=== PATIENT | male | born 1980 | race Caucasian/White ===

== ENCOUNTER 2016-05-13 17:09 | Inpatient (IN) | payer MEDICAID, OTHER ==
[2016-05-13] MEDS ORDERED: SODIUM CHLORIDE 0.9% 1,000 ML IV STA (17:13)
[2016-05-13 17:31] LABS: Basophils # (A) 0.1 k/uL (0-0.2); Basophils % (A) 0 %; CHCM 31.1; Eosinophils # (A) 0.2 k/uL (0-0.7); Eosinophils % (A) 1 %; HCT 44.6 % (39.0-53.0); HDW 2.15; HGB 14.4 gm/dL (13.0-17.5); Luc # (Auto) 0.25; Luc % (Auto) 1; Lymphocytes # (A) 3.4 k/uL (1.0-4.8); Lymphocytes % (A) 19 %; MCH 30.3 pg (25.0-35.0); MCHC 32.4 g/dL (31.0-37.0); MCV 93.6 fL (80.0-100.0); Mean Platelet Volume 7.6; Monocytes # (A) 0.7 k/uL (0-1.0); Monocytes % (A) 4 %; Neutrophils # (A) 13.3 k/uL (1.3-7.7); Neutrophils % (A) 75 %; RBC 4.76 m/uL (4.30-5.90); RDW 13.3 % (11.5-15.5); WBC 17.8 k/uL (3.8-10.6); WBC (Perox) 17.79
[2016-05-13 17:37] LABS: ALT 31 U/L (21-72); AST 51 U/L (17-59); Acetaminophen <10.0 ug/mL; Alcohol <10 mg/dL; Alkaline Phosphatase 105 U/L (38-126); Anion Gap 26 mmol/L; Blood Urea Nitrogen 10 mg/dL (9-20); Calcium 9.2 mg/dL (8.4-10.2); Carbon Dioxide 13 mmol/L (22-30); Chloride 100 mmol/L (98-107); Glucose 254 mg/dL (74-99); Non-African American GFR(MDRD) >60 (>60 ml/min/1.73 sqM); Potassium 4.4 mmol/L (3.5-5.1); Salicylate <1.0 mg/dL; Sodium 139 mmol/L (137-145); Total Bilirubin 0.6 mg/dL (0.2-1.3); Total Protein 7.4 g/dL (6.3-8.2)
--- NOTE | 2016-05-13 18:57 | ED ---
Overdose HPI - General Chief Complaint: Overdose Stated Complaint: OVERDOSE Time Seen by Provider: 05/13/16 17:13 Source: EMS Mode of arrival: EMS Limitations: altered mental status - History of Present Illness Initial Comments: 5 years old gentleman brought in by EMS with a were informed about him being on the street by someone , EMS crew found that that he had didn't some mom here and recently they supported dye him with the by bagging him and then he woke up on his arrival he was breathing on his own me he would respond to prescription medicines point to verbal command we bagged him for a few minutes and then he sat up and now had a chat with us he said he did do urine as well as clonazepam. Then he said he has been very depressed and been thinking about harming himself him a he stated that he has not been taking his medications he stated that his tetanus status is up-to-date - Related Data Home Medications Medication Instructions Recorded Confirmed ARIPiprazole [Abilify] 30 mg PO DAILY 05/13/16 05/13/16 Cyclobenzaprine [Flexeril] 10 mg PO TID PRN 05/13/16 05/13/16 Mirtazapine [Remeron] 45 mg PO HS 05/13/16 05/13/16 OXcarbazepine [Trileptal] 150 mg PO BID 05/13/16 05/13/16 cloNIDine HCL [Catapres] 0.1 mg PO BID 05/13/16 05/13/16 lamoTRIgine [LaMICtal] 100 mg PO BID 05/13/16 05/13/16 Allergies Allergy/AdvReac Type Severity Reaction Status Date / Time morphine Allergy Itching Verified 05/13/16 18:10 Review of Systems ROS Statement: Those systems with pertinent positive or pertinent negative responses have been documented in the HPI. ROS Other: All systems not noted in ROS Statement are negative. Past Medical History Past Medical History: Asthma Additional Past Medical History / Comment(s): Herniated disc in the C-spine and lumbar spine, seasonal ALLERGIES History of Any Multi-Drug Resistant Organisms: MRSA Date of last positivie culture/infection: 2008 MDRO Source:: Per Pt; bilat hips from boils 2008 Past Surgical History: Orthopedic Surgery Additional Past Surgical History / Comment(s): R shoulder surg 2005 due to a work-related injury, bilat wrist surg 09/13/[address] Toribio. Past Anesthesia/Blood Transfusion Reactions: No Reported Reaction Past Psychological History: ADD/ADHD, Anxiety, Bipolar, Depression, Schizoaffective Disorder Additional Psychological History / Comment(s): Anti social personality disorder Smoking Status: Current every day smoker Past Alcohol Use History: None Reported Additional Past Alcohol Use History / Comment(s): Patient is a smoker of 2 and half packs per day. He recently cut back to 68 cigarettes per day and has not had anything since his incarceration on September 09. He has been binge drinking since he found his girlfriend with 5-6 beers per day. He denies history of alcoholism. He has history of heroin and cocaine use by snorting. He denies any IV drug use. 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 Past Drug Use History: Cocaine, Heroin, IV Drug Use, Prescription Drug Abuse - Past Family History Father Family Medical History: No Reported History Additional Family Medical History / Comment(s): Father is alove at age 65 with history of HTN, bilpolar. Mother Family Medical History: No Reported History, Diabetes Mellitus, Hypertension Additional Family Medical History / Comment(s): There is 52 years old with history of hypertension and diabetes. Patient has 2 sisters with bipolar. No brothers. General Exam - General Exam Comments Initial Comments: General: The patient is awake and alert, in no distress, and does not appear acutely ill. It anxious Skin: Skin is warm and dry and no rashes or lesions are noted. Has some small abrasions on his hands Eye: Pupils are equal, round and reactive to light, extra-ocular movements are intact; there is normal conjunctiva bilaterally. Ears, nose, mouth and throat: There are moist mucous membranes and no oral lesions. Neck: The neck is supple, there is no tenderness Cardiovascular: There is a regular rate and rhythm. No murmur, rub or gallop is appreciated. Noticed tachycardia Respiratory: To auscultation bilateral, no wheezing no rhonchi no distress respiratory sommers noticed Gastrointestinal: Soft, non-distended, non-tender abdomen without masses or organomegaly noted. There is no rebound or guarding present. Bowel sounds are unremarkable. Back: There is no tenderness to palpation in the midline. There is no obvious deformity. Musculoskeletal: Normal ROM, no tenderness, There is no pedal edema. There is no calf tenderness or swelling. No cords were appreciated. Neurological: CN II-XII intact, Cranial nerves III through XII are intact. There are no obvious motor or sensory deficits. Coordination appears grossly intact. Speech is normal. Psychiatric: Cooperative, breast admits to suicidal ideation time to time he didn't share any plan with me Limitations: altered mental status Course Vital Signs 05/13/16 05/13/16 05/13/16 17:25 18:17 19:12 Temperature 98.0 F 96.9 F L Pulse Rate 137 H 98 Respiratory 12 18 Rate Blood Pressure 135/63 126/78 O2 Sat by Pulse 93 L 94 L 100 Oximetry 05/13/16 05/13/16 20:07 21:14 Temperature Pulse Rate 88 84 Respiratory 16 16 Rate Blood Pressure 139/90 123/62 O2 Sat by Pulse 98 98 Oximetry EKG showed sinus tachycardia ventricular rate is 146 ME interval is 1:30 QRS duration is 86 QT/QTc is 288/448 vomiting review of this EKG did not reveal any ST elevation or ST depression Medical Decision Making - Lab Data Result diagrams: 05/13/16 17:10 05/13/16 17:10 Lab Results 05/13/16 05/13/16 05/13/16 Range/Units 17:10 17:10 17:10 WBC 17.8 H (3.8-10.6) k/uL RBC 4.76 (4.30-5.90) m/uL Hgb 14.4 (13.0-17.5) gm/dL Hct 44.6 (39.0-53.0) % MCV 93.6 (80.0-100.0) fL MCH 30.3 (25.0-35.0) pg MCHC 32.4 (31.0-37.0) g/dL RDW 13.3 (11.5-15.5) % Plt Count 253 (150-450) k/uL Neutrophils % 75 % Lymphocytes % 19 % Monocytes % 4 % Eosinophils % 1 % Basophils % 0 % Neutrophils # 13.3 H (1.3-7.7) k/uL Lymphocytes # 3.4 (1.0-4.8) k/uL Monocytes # 0.7 (0-1.0) k/uL Eosinophils # 0.2 (0-0.7) k/uL Basophils # 0.1 (0-0.2) k/uL VBG pH (7.31-7.41) VBG pCO2 (37-51) mmHg VBG HCO3 (24-28) mmol/L Sodium 139 (137-145) mmol/L Potassium 4.4 (3.5-5.1) mmol/L Chloride 100 (98-107) mmol/L Carbon Dioxide 13 L (22-30) mmol/L Anion Gap 26 mmol/L BUN 10 (9-20) mg/dL Creatinine 1.13 (0.66-1.25) mg/dL Est GFR (MDRD) Af Amer >60 (>60 ml/min/1.73 sqM) Est GFR (MDRD) Non-Af >60 (>60 ml/min/1.73 sqM) Glucose 254 H (74-99) mg/dL Calcium 9.2 (8.4-10.2) mg/dL Total Bilirubin 0.6 (0.2-1.3) mg/dL AST 51 (17-59) U/L ALT 31 (21-72) U/L Alkaline Phosphatase 105 (38-126) U/L Troponin I <0.012 (0.000-0.034) ng/mL Total Protein 7.4 (6.3-8.2) g/dL Albumin 4.6 (3.5-5.0) g/dL Salicylates <1.0 mg/dL Urine Opiates Screen (NotDetected) Ur Oxycodone Screen (NotDetected) Urine Methadone Screen (NotDetected) Ur Propoxyphene Screen (NotDetected) Acetaminophen <10.0 ug/mL Ur Barbiturates Screen (NotDetected) U Tricyclic Antidepress (NotDetected) Ur Phencyclidine Scrn (NotDetected) Ur Amphetamines Screen (NotDetected) U Methamphetamines Scrn (NotDetected) U Benzodiazepines Scrn (NotDetected) Urine Cocaine Screen (NotDetected) U Marijuana (THC) Screen (NotDetected) Serum Alcohol <10 mg/dL 05/13/16 05/13/16 Range/Units 19:06 20:25 WBC (3.8-10.6) k/uL RBC (4.30-5.90) m/uL Hgb (13.0-17.5) gm/dL Hct (39.0-53.0) % MCV (80.0-100.0) fL MCH (25.0-35.0) pg MCHC (31.0-37.0) g/dL RDW (11.5-15.5) % Plt Count (150-450) k/uL Neutrophils % % Lymphocytes % % Monocytes % % Eosinophils % % Basophils % % Neutrophils # (1.3-7.7) k/uL Lymphocytes # (1.0-4.8) k/uL Monocytes # (0-1.0) k/uL Eosinophils # (0-0.7) k/uL Basophils # (0-0.2) k/uL VBG pH 7.36 (7.31-7.41) VBG pCO2 42 (37-51) mmHg VBG HCO3 23 L (24-28) mmol/L Sodium (137-145) mmol/L Potassium (3.5-5.1) mmol/L Chloride (98-107) mmol/L Carbon Dioxide (22-30) mmol/L Anion Gap mmol/L BUN (9-20) mg/dL Creatinine (0.66-1.25) mg/dL Est GFR (MDRD) Af Amer (>60 ml/min/1.73 sqM) Est GFR (MDRD) Non-Af (>60 ml/min/1.73 sqM) Glucose (74-99) mg/dL Calcium (8.4-10.2) mg/dL Total Bilirubin (0.2-1.3) mg/dL AST (17-59) U/L ALT (21-72) U/L Alkaline Phosphatase (38-126) U/L Troponin I (0.000-0.034) ng/mL Total Protein (6.3-8.2) g/dL Albumin (3.5-5.0) g/dL Salicylates mg/dL Urine Opiates Screen Not Detected (NotDetected) Ur Oxycodone Screen Not Detected (NotDetected) Urine Methadone Screen Not Detected (NotDetected) Ur Propoxyphene Screen Not Detected (NotDetected) Acetaminophen ug/mL Ur Barbiturates Screen Not Detected (NotDetected) U Tricyclic Antidepress Not Detected (NotDetected) Ur Phencyclidine Scrn Not Detected (NotDetected) Ur Amphetamines Screen Not Detected (NotDetected) U Methamphetamines Scrn Not Detected (NotDetected) U Benzodiazepines Scrn Not Detected (NotDetected) Urine Cocaine Screen Detected H (NotDetected) U Marijuana (THC) Screen Detected H (NotDetected) Serum Alcohol mg/dL Critical Care Time Total Critical Care Time: 60 Critical Care Time: Patient came in the had the quite a bit of respiratory distress and the respiratory rate was quite down he needed bagging EMS and got gave him some Narcan and we bagged him in the ER then he woke up that improved his respiratory status his labs are reviewed white count is 17.8 that with some left shift also noticed that his CO2 is slight pain that a flex metabolic acidosis and sugar was high though he denies any history of diabetes urine drug screen showed marijuana as well as cocaine patient required him fluid resuscitation and after fluid resuscitation for almost 2-3 L his heart rate is normal when he came in his heart rate was quite high that time as well as 150 at this 0.2153 his heart rate is down to 84 and we repeated is a venous blood gases and his bicarb is 23 comparing to 13 when he came and he has been medically cleared to be evaluated by psych department Disposition Clinical Impression: Drug overdose, Metabolic acidosis, Suicidal ideation, Hyperglycemia, Polysubstance abuse Disposition: ADMITTED IP TO THIS [facility] Condition: Fair Referrals: None,Stated [Primary Care Provider] - 1-2 days
[2016-05-13] MEDS ORDERED: SODIUM CHLORIDE 0.9% 2,000 ML IV ONE (18:58)
[2016-05-13 20:10] VITALS: RESP 16
[2016-05-13 20:43] LABS: VBG PH 7.36 (7.31-7.41)
[2016-05-14] MEDS ORDERED: ZIPRASIDONE 20 MG VIAL IM PRN (02:56)
[2016-05-14] MEDS ORDERED: MAGNESIUM HYDROXIDE 2,400 MG/10 ML CUP PO PRN (02:56)
[2016-05-14] MEDS ORDERED: MAG HYDROX/AL HYDROX/SIMETH 30 ML CUP PO PRN (02:56)
[2016-05-14] MEDS ORDERED: LORazepam 1 MG TAB PO PRN (03:01)
[2016-05-14] MEDS: ACETAMINOPHEN TAB 325 MG TAB PO PRN ×2 (06:42→18:43)
[2016-05-14] MEDS: NICOTINE 21MG/24HR PATCH TRANSDERM SCH (09:50)
[2016-05-14] MEDS: OXcarbazepine 300 MG TAB PO SCH ×2 (09:51→21:06)
[2016-05-14 10:25] LABS: Basophils % (A) 0 %; CH 29.5; CHCM 32.7; Eosinophils # (A) 0.1 k/uL (0-0.7); Eosinophils % (A) 2 %; HCT 37.5 % (39.0-53.0); HDW 2.24; HGB 12.4 gm/dL (13.0-17.5); Luc # (Auto) 0.09; Luc % (Auto) 1; Lymphocytes # (A) 1.5 k/uL (1.0-4.8); Lymphocytes % (A) 20 %; MCHC 33.2 g/dL (31.0-37.0); Mean Platelet Volume 7.3; Monocytes # (A) 0.4 k/uL (0-1.0); Monocytes % (A) 6 %; Neutrophils # (A) 5.1 k/uL (1.3-7.7); Neutrophils % (A) 71 %; RBC 4.14 m/uL (4.30-5.90); RDW 13.7 % (11.5-15.5); WBC 7.2 k/uL (3.8-10.6); WBC (Perox) 7.92
[2016-05-14 10:36] LABS: MCV 90.6 fL (80.0-100.0)
[2016-05-14 10:51] LABS: ALT 29 U/L (21-72); AST 31 U/L (17-59); Alkaline Phosphatase 79 U/L (38-126); Anion Gap 11 mmol/L; Blood Urea Nitrogen 9 mg/dL (9-20); Calcium 8.7 mg/dL (8.4-10.2); Carbon Dioxide 23 mmol/L (22-30); Chloride 107 mmol/L (98-107); Glucose 193 mg/dL (74-99); Non-African American GFR(MDRD) >60 (>60 ml/min/1.73 sqM); Potassium 4.1 mmol/L (3.5-5.1); Sodium 141 mmol/L (137-145); Total Bilirubin 0.4 mg/dL (0.2-1.3); Total Protein 5.7 g/dL (6.3-8.2)
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
[2016-05-14] MEDS: HYDROcodone/APAP 5-325MG 1 EACH TAB PO PRN ×2 (13:41→21:35)
[2016-05-14] MEDS: GABAPENTIN 300 MG CAP PO SCH ×3 (13:44→21:06)
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
[2016-05-14 18:38] LABS: Hemoglobin A1C 6.1 % (4.2-6.1)
[2016-05-14] MEDS ORDERED: MIRTAZAPINE 15 MG TAB PO SCH (21:00)
[2016-05-15 06:41] VITALS: BP 155/88; PULSE 77; TEMP 98.2
[2016-05-15] MEDS: NICOTINE 21MG/24HR PATCH TRANSDERM SCH (08:31)
[2016-05-15] MEDS: OXcarbazepine 300 MG TAB PO SCH (08:31)
[2016-05-15] MEDS: GABAPENTIN 300 MG CAP PO SCH (08:32)
[2016-05-15] MEDS: HYDROcodone/APAP 5-325MG 1 EACH TAB PO PRN (08:32)
[2016-05-15] MEDS ORDERED: HYDROcodone/APAP 10-325MG 1 EACH TAB PO ONE (09:28)
[2016-05-15] MEDS ORDERED: ARIPiprazole 15 MG TAB PO SCH (19:00)
--- NOTE | 2016-05-16 09:30 | DS ---
DATE OF ADMISSION: 05/14/2016 DATE OF DISCHARGE: 05/15/2016 CONSULT PHYSICIAN: Josue. CONSULTING PROVIDER: Catherine Duenas. CONSULT REASON: For medical management, especially patient has been complaining of chronic pain and he has abnormal labs. His blood glucose at the admission was 254. Do you want consulting provider notified? Yes. DISCHARGE DIAGNOSES: 1. Cocaine use disorder, severe. 2. Cannabis use disorder, severe. 3. Cocaine abuse with cocaine induced mood disorder. 4. History of bipolar disorder and antisocial personality trait. BRIEF SUMMARY OF THE ADMISSION NOTES: Please refer to my initial psychiatric evaluation. Patient presented to the emergency after being on the street by someone and they called EMS. Patient took overdose of cocaine; however, he denied using cocaine despite that his urine drug screen is positive for cannabis and cocaine. When he came to the emergency room, he was in reported distress, Narcan was given and patient woke up and his respiration improved a lot. They did correct the metabolic acidosis in the emergency room and after he has been medically cleared he was transferred to the psych department. SUMMARY OF HOSPITAL COURSE: The patient was admitted to the mental health unit on voluntary basis. Since he was admitted, he denied any suicidal or homicidal ideation. He stated that he has been severely depressed because of his chronic pain and "no one is giving me pain medication because I had history of heroin and cocaine use". He stated that he is easily frustrated because no one does believe that he has severe chronic pain. He did admit that he has been noncompliant with his medication prescribed at [facility] and even he did miss his appointment in March. He did agree to be restarted back on his psychotropic medication including Abilify 30 mg daily, Remeron; however, I did cut down dose from 45 to 15 mg at bedtime and Trileptal 300 mg twice a day. As the patient was seen by the medical device assembler and he was complaining of chronic pain, she did order Neurontin 300 three times a day for pain and [place] 5 every 8 hours. When I saw the patient the next day he was very upset and angry because "I need higher dose for pain. I did not sleep last night because I'm having severe back pain". I did discuss with the patient that if he is not suicidal or homicidal he will be able to be released from here to go to pain management clinic and to follow up with [facility]. I did have a lengthy discussion with him about referral to inpatient chemical dependency; however, patient said, "I had been clean from cocaine and heroin for years. I don't know how the cocaine came in my system". His insight to his addiction is still questionable. Patient does have a family meeting scheduled at 11:00 with his mother as he has been living with his parents. MENTAL STATUS EXAMINATION: Patient is alert. He gives good eye contact, drug seeking. Speech is spontaneous and non-pressured. Thought process is linear. At times circumstantial but easy to redirect. He denied any suicidal or homicidal ideation, intent or plan. He does not feel hopeless or helpless. He stated that he just needs someone to give him enough pain medication for his chronic pain. There is no evidence of hypomania or logan. There is no evidence of psychosis. Insight and judgment are fair. PLAN: 1. Patient will be discharged from the mental health unit today to return home to live with his parents following his family support meeting. 2. Patient will continue with [facility] at [place]. 3. Patient has to NA meeting. Also he was referred to pain management clinic regarding his chronic back pain. He was instructed to abstain from cocaine, marijuana and any other illicit drug use. It seems to me that the patient is trying to shop around for pain medication especially after I did review [place] prescription. It seems that he did have last month couple of prescription from 2 different physicians for fentanyl and hydrocodone 10. I did discuss the possibility of him to discontinue all the pain medication, but he feels that his back pain is so severe that he cannot tolerate it so I instructed him to use medications only as prescribed and not to shop around and to be honest with his prescriber. Patient did agree. 4. There is no eminent safety risk. Patient does not have access to firearms and he is appropriate for transition back to the outpatient care. 5. Patient was instructed to return to the emergency room if any acute safety concern. Patient's condition at the time of the discharge, stable.
== END 2016-05-15 12:04 | disposition home or self-care (01) | DRG 918 ==
LOC: EC 17:09 → 3MHU 05-14 01:18
PROVIDERS: ADMIT Psychiatry & Neurology Psychiatry; ATTEND Psychiatry & Neurology Psychiatry
DX: T40.5X1A Poisoning by cocaine, accidental (unintentional), initial encounter (principal); E87.2 Acidosis; F33.2 Major depressive disorder, recurrent severe without psychotic features; R45.851 Suicidal ideations; M50.20 Other cervical disc displacement, unspecified cervical region; F19.20 Other psychoactive substance dependence, uncomplicated; F25.9 Schizoaffective disorder, unspecified; Z65.3 Problems related to other legal circumstances; F41.9 Anxiety disorder, unspecified; F60.2 Antisocial personality disorder; F90.9 Attention-deficit hyperactivity disorder, unspecified type; G89.29 Other chronic pain; J45.909 Unspecified asthma, uncomplicated; F17.210 Nicotine dependence, cigarettes, uncomplicated; F12.10 Cannabis abuse, uncomplicated; F11.10 Opioid abuse, uncomplicated; Z76.5 Malingerer [conscious simulation]; Z79.899 Other long term (current) drug therapy; Z82.49 Family history of ischemic heart disease and other diseases of the circulatory system; Z83.3 Family history of diabetes mellitus; Z91.14 Patient's other noncompliance with medication regimen; Z91.19 Patient's noncompliance with other medical treatment and regimen; F14.14 Cocaine abuse with cocaine-induced mood disorder; S80.212A Abrasion, left knee, initial encounter; S80.211A Abrasion, right knee, initial encounter; S50.312A Abrasion of left elbow, initial encounter; S50.311A Abrasion of right elbow, initial encounter; Z88.5 Allergy status to narcotic agent; M51.26 Other intervertebral disc displacement, lumbar region; Z81.8 Family history of other mental and behavioral disorders; Z56.0 Unemployment, unspecified; Z86.14 Personal history of Methicillin resistant Staphylococcus aureus infection
CPT/HCPCS: 36415; 80053; 80306; 80320; 82803; 83036; 83520; 84443; 84484; 85025; 93005; 96360; 96361; 99291

== ENCOUNTER 2016-05-20 00:36 | Emergency (ER) | payer OTHER ==
[2016-05-20 00:41] VITALS: RESP 16; TEMP 97.3
--- NOTE | 2016-05-20 01:03 | ED ---
General Adult HPI - General Chief complaint: Overdose Stated complaint: overdose Time Seen by Provider: 05/20/16 00:40 Source: patient Mode of arrival: EMS Limitations: no limitations - History of Present Illness Initial comments: This patient is a 36-year-old man brought in by EMS to be seen regarding heroin use. The patient was on the scene where another patient had an overdose area he reports that he had been performing "CPR" for a number of minutes, and then had a lot of anxiety about police and first responders being on the scene, and as a result he became sweaty and was having palpitations. EMS then advised him to be seen. The patient states that he has subsequently had resolution of those symptoms. The patient states that he did use a small amount of heroin, Just a portion of a small bag, and that he took that by insufflation. The patient states that he is not been drowsy at all, and he requests discharge. -: minutes(s) - Related Data Home Medications Medication Instructions Recorded Confirmed Cyclobenzaprine [Flexeril] 10 mg PO TID PRN 05/13/16 05/20/16 cloNIDine HCL [Catapres] 0.1 mg PO BID 05/13/16 05/20/16 HYDROcodone/APAP 10-325MG [[place] 1 tab PO Q6H PRN 05/20/16 05/20/16 10-325] Previous Rx's Medication Instructions Recorded ARIPiprazole [Abilify] 30 mg PO HS 30 Days 05/15/16 Gabapentin [Neurontin] 300 mg PO TID 30 Days 05/15/16 Mirtazapine [Remeron] 15 mg PO HS 30 Days 05/15/16 OXcarbazepine [Trileptal] 300 mg PO BID 30 Days 05/15/16 Allergies Allergy/AdvReac Type Severity Reaction Status Date / Time morphine Allergy Itching Verified 05/20/16 00:41 Review of Systems ROS Statement: Those systems with pertinent positive or pertinent negative responses have been documented in the HPI. ROS Other: All systems not noted in ROS Statement are negative. Constitutional: Denies: weakness Eyes: Denies: vision change Respiratory: Denies: cough, dyspnea Cardiovascular: Reports: palpitations. Denies: chest pain, syncope Gastrointestinal: Denies: abdominal pain, vomiting, diarrhea Neurological: Denies: headache, weakness, numbness Past Medical History Past Medical History: Asthma Additional Past Medical History / Comment(s): Herniated disc in the C-spine and lumbar spine, seasonal ALLERGIES History of Any Multi-Drug Resistant Organisms: MRSA Date of last positivie culture/infection: 2008 MDRO Source:: Per Pt; bilat hips from boils 2008 Past Surgical History: Orthopedic Surgery Additional Past Surgical History / Comment(s): R shoulder surg 2006 due to a work-related injury, bilat wrist surg 09/13/[address] Toribio. Past Anesthesia/Blood Transfusion Reactions: No Reported Reaction Past Psychological History: ADD/ADHD, Anxiety, Bipolar, Depression, Schizoaffective Disorder Additional Psychological History / Comment(s): Anti social personality disorder Smoking Status: Current every day smoker Past Alcohol Use History: None Reported Additional Past Alcohol Use History / Comment(s): Patient is a smoker of 2 and half packs per day. He recently cut back to 3/4 ppd. History of binge drinking He denies history of alcoholism. He has history of heroin and cocaine use by snorting. He denies any IV drug use. 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 Past Drug Use History: Cocaine, Heroin, IV Drug Use, Prescription Drug Abuse - Past Family History Father Family Medical History: No Reported History Additional Family Medical History / Comment(s): Father is alove at age 65 with history of HTN, bilpolar. Mother Family Medical History: No Reported History, Diabetes Mellitus, Hypertension Additional Family Medical History / Comment(s): There is 52 years old with history of hypertension and diabetes. Patient has 2 sisters with bipolar. No brothers. General Exam Limitations: no limitations General appearance: alert, in no apparent distress Head exam: Present: atraumatic, normocephalic Eye exam: Present: normal appearance, PERRL, EOMI. Absent: scleral icterus, conjunctival injection, nystagmus Neck exam: Present: normal inspection Respiratory exam: Present: normal lung sounds bilaterally. Absent: respiratory distress, wheezes, rales, rhonchi, stridor Cardiovascular Exam: Present: normal rhythm, tachycardia (Heart rate 104 at my exam), normal heart sounds. Absent: systolic murmur, diastolic murmur, rubs, gallop GI/Abdominal exam: Present: soft. Absent: distended, tenderness, guarding, rebound Extremities exam: Present: normal inspection, normal capillary refill. Absent: pedal edema, calf tenderness Back exam: Present: normal inspection. Absent: CVA tenderness (R), CVA tenderness (L) Neurological exam: Present: alert, oriented X3, normal gait Skin exam: Present: warm, dry, intact, normal color. Absent: rash, diaphoretic Course Vital Signs 05/20/16 05/20/16 00:38 01:04 Temperature 97.3 F L Pulse Rate 134 H 92 Respiratory 16 16 Rate Blood Pressure 138/73 O2 Sat by Pulse 96 98 Oximetry EKG Findings - EKG Results: EKG: interpreted by ERMD, sinus rhythm, normal axis, normal QRS, normal ST/T, no acute changes EKG shows: tachycardia (Rate 120 bpm) Medical Decision Making - Medical Decision Making The patient is without complaint and following my exam his heart rate continued to normalize and was 92 on the monitor. He is not showing any signs of clinical opioid toxicity at the moment. He wants to be discharged so that he can go to his 's bedside and state with her while she is a patient. We discussed the signs and symptoms requiring return to be reevaluated. Disposition Clinical Impression: Substance abuse Disposition: HOME SELF-CARE Condition: Good Instructions: Narcotic Abuse (ED) Referrals: None,Stated [Primary Care Provider] - 1-2 days Maura Begum MD [REFERRING] - 1-2 days
[2016-05-20 01:43] VITALS: BP 111/69; PULSE 103
== END 2016-05-20 01:43 | disposition home or self-care (01) ==
LOC: EC 00:36
DX: F19.10 Other psychoactive substance abuse, uncomplicated (principal); R00.0 Tachycardia, unspecified; F90.9 Attention-deficit hyperactivity disorder, unspecified type; F41.9 Anxiety disorder, unspecified; F17.200 Nicotine dependence, unspecified, uncomplicated; Z86.14 Personal history of Methicillin resistant Staphylococcus aureus infection; Z79.899 Other long term (current) drug therapy; Z88.5 Allergy status to narcotic agent
CPT/HCPCS: 93005; 99284

== ENCOUNTER 2016-06-20 16:21 | Inpatient (IN) | payer OTHER ==
[2016-06-20] MEDS ORDERED: NALOXONE 0.4 MG/ML 1 ML VIAL IV STA ×2 (16:28→16:59)
[2016-06-20 16:55] LABS: Basophils % (A) 0 %; Eosinophils # (A) 0.1 k/uL (0-0.7); Eosinophils % (A) 1 %; HCT 45.7 % (39.0-53.0); HDW 2.22; HGB 14.9 gm/dL (13.0-17.5); Luc # (Auto) 0.16; Luc % (Auto) 2; Lymphocytes # (A) 2.7 k/uL (1.0-4.8); Lymphocytes % (A) 26 %; MCH 29.7 pg (25.0-35.0); MCHC 32.6 g/dL (31.0-37.0); MCV 91.2 fL (80.0-100.0); Mean Platelet Volume 6.9; Monocytes # (A) 0.4 k/uL (0-1.0); Monocytes % (A) 4 %; Neutrophils % (A) 67 %; RBC 5.01 m/uL (4.30-5.90); RDW 13.9 % (11.5-15.5); WBC 10.4 k/uL (3.8-10.6); WBC (Perox) 10.14
[2016-06-20] MEDS ORDERED: ACTIVATED CHARCOAL 50 GM/240 ML BOTTLE PO STA (17:00)
--- NOTE | 2016-06-20 17:03 | ED ---
Overdose HPI - General Source: patient, police, EMS, RN notes reviewed Mode of arrival: EMS Limitations: no limitations <Luis Nguyen - Last Filed: 06/20/16 19:27> <Marisol Begum - Last Filed: 06/20/16 20:03> - General Chief Complaint: Overdose Stated Complaint: overdose Time Seen by Provider: 06/20/16 16:24 - History of Present Illness Initial Comments: 36-year-old male present emergency department via EMS with police escort for overdose, suicide ideation. Patient called 911 because he took a bunch medications. He was found with multiple 2 bottles on sure exactly what medications he took at this time. He doesn't taking pain medication. Patient has a long-standing history of drug overdose, multiple illicit drug abuse history. Patient information is limited at this time is patient is drowsy. Patient has no obvious injuries. (Luis Nguyen) - Related Data Home Medications Medication Instructions Recorded Confirmed Cyclobenzaprine [Flexeril] 10 mg PO TID PRN 05/13/16 05/20/16 cloNIDine HCL [Catapres] 0.1 mg PO BID 05/13/16 05/20/16 HYDROcodone/APAP 10-325MG [[place] 1 tab PO Q6H PRN 05/20/16 05/20/16 10-325] Previous Rx's Medication Instructions Recorded ARIPiprazole [Abilify] 30 mg PO HS 30 Days 05/15/16 Gabapentin [Neurontin] 300 mg PO TID 30 Days 05/15/16 Mirtazapine [Remeron] 15 mg PO HS 30 Days 05/15/16 OXcarbazepine [Trileptal] 300 mg PO BID 30 Days 05/15/16 Allergies Allergy/AdvReac Type Severity Reaction Status Date / Time morphine Allergy Itching Verified 05/20/16 00:41 Review of Systems ROS Other: All systems not noted in ROS Statement are negative. <Luis Nguyen - Last Filed: 06/20/16 19:27> ROS Other: All systems not noted in ROS Statement are negative. <Marisol Begum - Last Filed: 06/20/16 20:03> ROS Statement: Those systems with pertinent positive or pertinent negative responses have been documented in the HPI. Past Medical History Past Medical History: Asthma Additional Past Medical History / Comment(s): Herniated disc in the C-spine and lumbar spine, seasonal ALLERGIES History of Any Multi-Drug Resistant Organisms: MRSA Date of last positivie culture/infection: 2008 MDRO Source:: Per Pt; bilat hips from boils 2008 Past Surgical History: Orthopedic Surgery Additional Past Surgical History / Comment(s): R shoulder surg 2006 due to a work-related injury, bilat wrist surg 09/13/[address] Toribio. Past Anesthesia/Blood Transfusion Reactions: No Reported Reaction Past Psychological History: ADD/ADHD, Anxiety, Bipolar, Depression, Schizoaffective Disorder Additional Psychological History / Comment(s): Anti social personality disorder Smoking Status: Current every day smoker Past Alcohol Use History: None Reported Additional Past Alcohol Use History / Comment(s): Patient is a smoker of 2 and half packs per day. He recently cut back to 3/4 ppd. History of binge drinking He denies history of alcoholism. He has history of heroin and cocaine use by snorting. He denies any IV drug use. 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 Past Drug Use History: Cocaine, Heroin, IV Drug Use, Prescription Drug Abuse - Past Family History Father Family Medical History: No Reported History Additional Family Medical History / Comment(s): Father is alove at age 65 with history of HTN, bilpolar. Mother Family Medical History: No Reported History, Diabetes Mellitus, Hypertension Additional Family Medical History / Comment(s): There is 52 years old with history of hypertension and diabetes. Patient has 2 sisters with bipolar. No brothers. <Luis Nguyen - Last Filed: 06/20/16 19:27> General Exam Limitations: no limitations (alert but drowsy) General appearance: alert, in no apparent distress Head exam: Present: atraumatic, normocephalic, normal inspection Eye exam: Present: normal appearance, PERRL, EOMI, other (Pinpoint pupil). Absent: scleral icterus, conjunctival injection, periorbital swelling ENT exam: Present: normal exam, normal oropharynx, mucous membranes moist, TM's normal bilaterally, normal external ear exam Neck exam: Present: normal inspection, full ROM. Absent: tenderness, meningismus, lymphadenopathy Respiratory exam: Present: normal lung sounds bilaterally. Absent: respiratory distress, wheezes, rales, rhonchi, stridor Cardiovascular Exam: Present: regular rate, normal rhythm, normal heart sounds. Absent: systolic murmur, diastolic murmur, rubs, gallop, clicks GI/Abdominal exam: Present: soft, normal bowel sounds. Absent: distended, tenderness, guarding, rebound, rigid Neurological exam: Present: alert Skin exam: Present: warm, dry, intact, normal color. Absent: rash <Luis Nguyen - Last Filed: 06/20/16 19:27> Course <Luis Nguyen - Last Filed: 06/20/16 19:27> <Marisol Begum - Last Filed: 06/20/16 20:03> Vital Signs 06/20/16 06/20/16 06/20/16 16:23 16:45 17:47 Temperature 97.7 F Pulse Rate 90 80 76 Respiratory 14 14 16 Rate Blood Pressure 137/87 116/74 O2 Sat by Pulse 92 L 96 96 Oximetry 06/20/16 06/20/16 06/20/16 18:37 19:12 19:29 Temperature Pulse Rate 71 69 Respiratory 14 14 Rate Blood Pressure 118/64 175/101 O2 Sat by Pulse 96 96 100 Oximetry 06/20/16 19:44 Temperature Pulse Rate 75 Respiratory 16 Rate Blood Pressure 138/89 O2 Sat by Pulse 100 Oximetry - Reevaluation(s) Reevaluation #1: 06/20/16 18:35 Nurse did contacted poison control at initial evaluation the recommended NG tube, charcoal rather than gastric lavage. Patient was too combative with staff , kicked staff. Patient attempted of NG tube though he had some epistaxis. It was felt that patient was too combative for this. Patient is arousable at this time. The patient's vitals are stable. (Luis Nguyen) Reevaluation #2: 06/20/16 19:27 Patient is GCS has dropped to 7. Patient will be intubated at this time by Dr. ball. (Luis Nguyen) Procedures - Restraint - Face to Face Restraint Occurrence 1 Patient's Immediate Situation: Endangers self safety, Endangers staff safety, Violent behavior Patient's Reaction to the Intervention: Uncooperative Patient's Medical & Behavioral Condition: Agitated Face to Face Eval of Restraint Date: 06/20/16 Face to Face Eval of Restraint Time: 17:03 <Luis Nguyen - Last Filed: 06/20/16 19:27> Medical Decision Making - Lab Data Result diagrams: 06/20/16 16:45 06/20/16 16:45 <Luis Nguyen - Last Filed: 06/20/16 19:27> - Lab Data Result diagrams: 06/20/16 16:45 06/20/16 16:45 <Marisol Begum - Last Filed: 06/20/16 20:03> - Lab Data Lab Results 06/20/16 06/20/16 06/20/16 Range/Units 16:45 16:45 16:45 WBC 10.4 (3.8-10.6) k/uL RBC 5.01 (4.30-5.90) m/uL Hgb 14.9 (13.0-17.5) gm/dL Hct 45.7 (39.0-53.0) % MCV 91.2 (80.0-100.0) fL MCH 29.7 (25.0-35.0) pg MCHC 32.6 (31.0-37.0) g/dL RDW 13.9 (11.5-15.5) % Plt Count 272 (150-450) k/uL Neutrophils % 67 % Lymphocytes % 26 % Monocytes % 4 % Eosinophils % 1 % Basophils % 0 % Neutrophils # 7.0 (1.3-7.7) k/uL Lymphocytes # 2.7 (1.0-4.8) k/uL Monocytes # 0.4 (0-1.0) k/uL Eosinophils # 0.1 (0-0.7) k/uL Basophils # 0.0 (0-0.2) k/uL Sodium 135 L (137-145) mmol/L Potassium 4.5 (3.5-5.1) mmol/L Chloride 103 (98-107) mmol/L Carbon Dioxide 21 L (22-30) mmol/L Anion Gap 11 mmol/L BUN 13 (9-20) mg/dL Creatinine 0.77 (0.66-1.25) mg/dL Est GFR (MDRD) Af Amer >60 (>60 ml/min/1.73 sqM) Est GFR (MDRD) Non-Af >60 (>60 ml/min/1.73 sqM) Glucose 152 H (74-99) mg/dL Calcium 9.0 (8.4-10.2) mg/dL Total Bilirubin 0.7 (0.2-1.3) mg/dL AST 33 (17-59) U/L ALT 54 (21-72) U/L Alkaline Phosphatase 98 (38-126) U/L Total Creatine Kinase 240 H (55-170) U/L CK-MB (CK-2) 1.0 (0.0-2.4) ng/mL CK-MB (CK-2) Rel Index 0.4 Troponin I <0.012 (0.000-0.034) ng/mL Total Protein 7.6 (6.3-8.2) g/dL Albumin 4.4 (3.5-5.0) g/dL Salicylates <1.0 mg/dL Urine Opiates Screen (NotDetected) Ur Oxycodone Screen (NotDetected) Urine Methadone Screen (NotDetected) Ur Propoxyphene Screen (NotDetected) Acetaminophen <10.0 ug/mL Ur Barbiturates Screen (NotDetected) U Tricyclic Antidepress (NotDetected) Ur Phencyclidine Scrn (NotDetected) Ur Amphetamines Screen (NotDetected) U Methamphetamines Scrn (NotDetected) U Benzodiazepines Scrn (NotDetected) Urine Cocaine Screen (NotDetected) U Marijuana (THC) Screen (NotDetected) Serum Alcohol <10 mg/dL 06/20/16 Range/Units 17:14 WBC (3.8-10.6) k/uL RBC (4.30-5.90) m/uL Hgb (13.0-17.5) gm/dL Hct (39.0-53.0) % MCV (80.0-100.0) fL MCH (25.0-35.0) pg MCHC (31.0-37.0) g/dL RDW (11.5-15.5) % Plt Count (150-450) k/uL Neutrophils % % Lymphocytes % % Monocytes % % Eosinophils % % Basophils % % Neutrophils # (1.3-7.7) k/uL Lymphocytes # (1.0-4.8) k/uL Monocytes # (0-1.0) k/uL Eosinophils # (0-0.7) k/uL Basophils # (0-0.2) k/uL Sodium (137-145) mmol/L Potassium (3.5-5.1) mmol/L Chloride (98-107) mmol/L Carbon Dioxide (22-30) mmol/L Anion Gap mmol/L BUN (9-20) mg/dL Creatinine (0.66-1.25) mg/dL Est GFR (MDRD) Af Amer (>60 ml/min/1.73 sqM) Est GFR (MDRD) Non-Af (>60 ml/min/1.73 sqM) Glucose (74-99) mg/dL Calcium (8.4-10.2) mg/dL Total Bilirubin (0.2-1.3) mg/dL AST (17-59) U/L ALT (21-72) U/L Alkaline Phosphatase (38-126) U/L Total Creatine Kinase (55-170) U/L CK-MB (CK-2) (0.0-2.4) ng/mL CK-MB (CK-2) Rel Index Troponin I (0.000-0.034) ng/mL Total Protein (6.3-8.2) g/dL Albumin (3.5-5.0) g/dL Salicylates mg/dL Urine Opiates Screen Not Detected (NotDetected) Ur Oxycodone Screen Not Detected (NotDetected) Urine Methadone Screen Not Detected (NotDetected) Ur Propoxyphene Screen Not Detected (NotDetected) Acetaminophen ug/mL Ur Barbiturates Screen Not Detected (NotDetected) U Tricyclic Antidepress Not Detected (NotDetected) Ur Phencyclidine Scrn Not Detected (NotDetected) Ur Amphetamines Screen Not Detected (NotDetected) U Methamphetamines Scrn Not Detected (NotDetected) U Benzodiazepines Scrn Not Detected (NotDetected) Urine Cocaine Screen Not Detected (NotDetected) U Marijuana (THC) Screen Not Detected (NotDetected) Serum Alcohol mg/dL 06/20/16 18:35 EKG was performed at 17:51 normal sinus rhythm with a rate of 77 ME interval 152 , QRS duration 104 QT/QTC 384/434 (Luis Nguyen) Critical Care Time <AlvarezLuis atkins Maggie - Last Filed: 06/20/16 19:27> Total Critical Care Time: 60 <Marisol Begum - Last Filed: 06/20/16 20:03> Critical Care Time: Patient was quite combative when he came in and is required to police officers and a half dozen staff members to restrain him after that he became quite lethargic is GCS dropped below 8 and initially for about an hour he maintained his O2 sat is good and his respiratory rate was fine with the nasal airways bilaterally his respiratory rate dropped to 10 and he was breathing was slow and seemed like he was struggling to breathe he was not responding to sternal rub by definition his GCS was clearly below 7 at that point we decided to intubate him to protect his airways and we decided to put him in the ICU patient was intubated, intubation was not quite easy his anatomy seems to be bit different his epiglottis is quite large and was quite floppy was in the humerus in the way had a hard time seeing the vocal cords even with a kaleidoscope finally intubation now was performed with the LARYNGOSCOPE BILATERAL LOWER BREATH SOUNDS AND CO2 CAPNOGRAPHY CONFIRMED THE INTUBATION O2 SAT JUMPED UP TO 100% O2 BLOOD GAS IS ORDERED AND OROGASTRIC tube was inserted as well x-ray confirmation was done spoke with the Dr. 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
[2016-06-20 17:05] LABS: ALT 54 U/L (21-72); AST 33 U/L (17-59); Acetaminophen <10.0 ug/mL; Alcohol <10 mg/dL; Alkaline Phosphatase 98 U/L (38-126); Anion Gap 11 mmol/L; Blood Urea Nitrogen 13 mg/dL (9-20); Carbon Dioxide 21 mmol/L (22-30); Chloride 103 mmol/L (98-107); Glucose 152 mg/dL (74-99); Non-African American GFR(MDRD) >60 (>60 ml/min/1.73 sqM); Salicylate <1.0 mg/dL; Sodium 135 mmol/L (137-145); Total Bilirubin 0.7 mg/dL (0.2-1.3); Total Protein 7.6 g/dL (6.3-8.2)
[2016-06-20 17:09] LABS: Creatine Kinase 240 U/L (55-170)
[2016-06-20 17:13] LABS: Potassium 4.5 mmol/L (3.5-5.1)
[2016-06-20 17:21] LABS: Troponin I <0.012 ng/mL (0.000-0.034)
[2016-06-20] MEDS ORDERED: NALOXONE 0.4 MG/ML 1 ML VIAL IV PRN ×2 (19:28→23:08)
[2016-06-20] MEDS ORDERED: SODIUM CHLORIDE 0.9% 2,000 ML IV ONE (19:30)
--- NOTE | 2016-06-20 20:14 | XR ---
EXAMINATION TYPE: XR chest 1V portable DATE OF EXAM: 06/20/2016 8:05 PM COMPARISON: 05/19/2012 HISTORY: Check tube placement TECHNIQUE: Single frontal view of the chest is obtained. FINDINGS: Endotracheal tube is in good position. There is a nasogastric tube that appears in good po sition. Lungs are clear of consolidation. There are no hilar masses. Mediastinum is normal. There is no pleural effusion. There is increased interstitial markings on the left side. IMPRESSION: Endotracheal tube is in good position. There are increased mild interstitial markings in the left lung compared to last exam. No heart failure.
[2016-06-20] MEDS ORDERED: MIDAZOLAM (PF) 1 MG/ML 5 ML VIAL IV STA (20:30)
[2016-06-20] MEDS ORDERED: ROCURONIUM BROMIDE 10 MG/ML 10 ML VIAL IV STA (20:35)
[2016-06-20] MEDS ORDERED: ETOMIDATE 2 MG/ML 10 ML VIAL IVP STA (20:35)
[2016-06-20] MEDS ORDERED: SUCCINYLCHOLINE CHLORIDE VIAL 200 MG/10 ML VIAL IV STA (20:35)
[2016-06-20 20:45] LABS: ABG Base Excess -2.7 mmol/L; ABG HCO3 23 mmol/L (21-25); ABG PCO2 54 mmHg (35-45); ABG PH 7.26 (7.35-7.45); ABG PO2 >400 mmHg (83-108); ABG TCO2 25 mmol/L (19-24)
[2016-06-20] MEDS ORDERED: PROPOFOL 500 MG in EMPTY BAG 1 BAG IV ONE (21:31)
--- NOTE | 2016-06-20 21:38 | XR ---
EXAMINATION TYPE: XR chest 1V portable DATE OF EXAM: 06/20/2016 9:31 PM COMPARISON: Today HISTORY: Central line placement TECHNIQUE: Single frontal view of the chest is obtained. FINDINGS: There is a right jugular catheter with the tip over the right atrium. There is no pneumoth orax. There is probably some infiltrate and atelectasis in the right lower lobe. Endotracheal tube is in good position. Nasogastric tube is noted. There are chest leads. IMPRESSION: There is some new mild infiltrate and atelectasis at the right lung base compared to las t exam. Catheter appears in good position.
[2016-06-20] MEDS ORDERED: EMPTY BAG 1 BAG ONE (22:21)
[2016-06-20 22:25] LABS: Glucose,Whole Blood 129 mg/dL (75-99)
[2016-06-20] MEDS: SODIUM CHLORIDE 0.9% 1,000 ML IV SCH (22:30)
[2016-06-21] MEDS ORDERED: SODIUM CHLORIDE 0.9% 2,000 ML IV ONE (00:17)
[2016-06-21] MEDS: PROPOFOL 500 MG in EMPTY BAG 1 BAG IV SCH ×6 (00:30→22:34)
[2016-06-21] MEDS ORDERED: NOREPINEPHRIN 16 MG-0.9%NS PMX 16 MG/250 ML ML IV SCH (00:45)
[2016-06-21] MEDS ORDERED: NOREPINEPHRIN 4 MG-0.9% NS PMX 4 MG/250 ML ML IV ONE (00:52)
[2016-06-21] MEDS: HEPARIN SODIUM,PORCINE 5,000 UNIT/ML 1 ML VIAL SQ SCH ×3 (03:09→19:58)
[2016-06-21 05:37] LABS: ABG PCO2 39 mmHg (35-45); ABG PH 7.31 (7.35-7.45)
[2016-06-21 05:38] LABS: ABG Base Excess -6.5 mmol/L; ABG HCO3 19 mmol/L (21-25); ABG PO2 112 mmHg (83-108); ABG TCO2 20 mmol/L (19-24)
[2016-06-21 05:57] LABS: Basophils % (A) 0 %; CH 29.8; CHCM 32.4; Eosinophils # (A) 0.1 k/uL (0-0.7); Eosinophils % (A) 1 %; HCT 39.7 % (39.0-53.0); HDW 2.36; HGB 13.1 gm/dL (13.0-17.5); Luc # (Auto) 0.16; Luc % (Auto) 2; Lymphocytes # (A) 2.9 k/uL (1.0-4.8); Lymphocytes % (A) 26 %; MCH 30.5 pg (25.0-35.0); MCHC 32.9 g/dL (31.0-37.0); MCV 92.5 fL (80.0-100.0); Mean Platelet Volume 7.3; Monocytes # (A) 0.6 k/uL (0-1.0); Monocytes % (A) 6 %; Neutrophils # (A) 7.2 k/uL (1.3-7.7); Neutrophils % (A) 66 %; RBC 4.29 m/uL (4.30-5.90); WBC (Perox) 11.07
[2016-06-21 06:08] LABS: Anion Gap 4 mmol/L; Blood Urea Nitrogen 12 mg/dL (9-20); Calcium 7.6 mg/dL (8.4-10.2); Carbon Dioxide 22 mmol/L (22-30); Chloride 112 mmol/L (98-107); Glucose 119 mg/dL (74-99); Magnesium 1.8 mg/dL (1.6-2.3); Non-African American GFR(MDRD) >60 (>60 ml/min/1.73 sqM); Phosphorous 3.2 mg/dL (2.5-4.5); Sodium 138 mmol/L (137-145)
[2016-06-21] MEDS: SODIUM CHLORIDE 0.9% 1,000 ML IV SCH ×2 (06:26→19:58)
[2016-06-21] MEDS ORDERED: EMPTY BAG 1 BAG ONE ×7 (06:30→22:30)
[2016-06-21] MEDS: IPRATROPIUM-ALBUTEROL 3 ML NEB INHALATION SCH ×4 (07:51→19:51)
--- NOTE | 2016-06-21 08:25 | XR ---
EXAMINATION TYPE: XR chest 1V portable DATE OF EXAM: 06/21/2016 6:58 AM HISTORY: Tube placement. REFERENCE: Previous study dated 06/20/2016. FINDINGS: The patient is NG tube and ET tube and right internal jugular catheter remain in place, unc hanged in appearance. There is some streaky linear atelectasis at the right lung base. The left lung is clear. Pleural spaces appear clear. Heart is upper limits of normal in size. IMPRESSION: WORSENING ATELECTATIC CHANGE, RIGHT LUNG BASE.
--- NOTE | 2016-06-21 08:36 | P.CN ---
Psychiatric Consult - . Consult date: 06/21/16 Consult:: IDENTIFYING DATA: Mr. Shine is a 36-year-old male admitted to the ICU following an intentional overdose of prescription medication. HISTORY OF PRESENT ILLNESS: I reviewed the medical record and spoke with his parents. He was intubated and unresponsive. His parents stated that he from his 2 days ago. Since his separation his has called him several times requesting money in order to buy heroin. They believe that he overdosed because of separation and his persistently calling him for money or drugs. According to the nurse she overdosed on a "bottle" of Abilify and Remeron. PAST PSYCHIATRIC HISTORY: He has had 8 prior admissions to [facility]; the last was in September 2014. According to the admission history he had jumped from a second floor balcony of the snf resulting in fracture to both of his wrists. He was taken to [facility] where he had surgery and then referred for inpatient psychiatric treatment because the medical staff considered the act of being a suicide attempt. On presentation to the unit he denied suicidal ideation, plan or intent. He complained that he was distressed as he found his live-in girlfriend in his apartment in July 2014. His UDS was positive for cocaine. He was in snf for multiple felony charges including. SOCIAL HISTORY: According to his mother he has one child out of wedlock. He is currently but from his who has a history of heroin abuse. He was discharged from probation in May 2015 for charges of receiving stolen property. He has past felony charges of weapons possession, and receiving stolen property. MENTAL STATUS EXAM: He was saying. He has been in the ICU. He was not responsive. IMPRESSIONS: Intentional overdose by multiple medications PLAN: Please reconsult when he is medically stable 06/21/16 08:26
[2016-06-21] MEDS: CHLORHEXIDINE GLUCONATE 15 ML CUP MUCOUS MEM SCH ×2 (09:09→21:54)
[2016-06-21] MEDS: PANTOPRAZOLE 40 MG/10 ML VIAL IV SCH (09:56)
[2016-06-21] MEDS: PIPERACILLIN-TAZOBACTAM 3.375 GM in DEXTROSE/WATER 1 50ML.BAG IVPB SCH ×2 (11:40→19:57)
--- NOTE | 2016-06-21 12:46 | P.CNPUL ---
History of Present Illness Consult date: 06/21/16 Requesting physician: Kendy Flores Reason for consult: other (ICU MANGEMENT/ [facility]) History of present illness: This is a 36-year-old male patient being evaluated and examined today in the intensive care unit. This patient was brought into the emergency room on 2016 via EMS with police escort for intentional overdose with suicidal ideations. The patient called 911 himself after he took a bunch of medications he was found with 2 empty bottles of Abilify and Remeron. This patient has a long-standing history of recurrent drug overdoses and multiple illicit drug abuse. During examination in the emergency room the patient was very drowsy but had no obvious injuries at that time. Poison control was contacted and recommended the emergency room put an NG tube and charcoal rather than gastric lavage. The patient was extensively combative with the staff and repeatedly kicked them. The patient did have some episodic for when they attempted the NG tube. It was then felt at that time due to the patient's extensive combativeness it was safeR not continue with the NG tube at that time. The patient was arousable and his vital s signs were stable. Shortly after the patient actually became unresponsive and emergent intubation followed. Please see ER notes regarding intubation. Upon examination the patient is on mechanical ventilation with propofol for light sedation. NG tube is present up to low intermittent suction yellow bile colored fluid is noted in the canister. Chest x-ray was reviewed today and compared to the previous day and shows work worsening atelectasis changes in the right lung base patient could have aspirated during his events in the emergency room. Patient also has a right jugular central line placed. Review of Systems Review of systems unable to be completed due to the patient being on mechanical ventilation with propofol for sedation. Past Medical History Past Medical History: Asthma Additional Past Medical History / Comment(s): Herniated disc in the C-spine and lumbar spine, seasonal ALLERGIES History of Any Multi-Drug Resistant Organisms: MRSA Date of last positivie culture/infection: 2008 MDRO Source:: Per Pt; bilat hips from boils 2008 Past Surgical History: Orthopedic Surgery Additional Past Surgical History / Comment(s): R shoulder surg 2005 due to a work-related injury, bilat wrist surg 09/13/[address] Toribio. Past Anesthesia/Blood Transfusion Reactions: No Reported Reaction Past Psychological History: ADD/ADHD, Anxiety, Bipolar, Depression, Schizoaffective Disorder Additional Psychological History / Comment(s): Anti social personality disorder Smoking Status: Current every day smoker Past Alcohol Use History: None Reported Additional Past Alcohol Use History / Comment(s): Patient is a smoker of 2 and half packs per day. He recently cut back to 3/4 ppd. History of binge drinking He denies history of alcoholism. He has history of heroin and cocaine use by snorting. He denies any IV drug use. 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 Past Drug Use History: Cocaine, Heroin, IV Drug Use, Prescription Drug Abuse - Past Family History Father Family Medical History: No Reported History Additional Family Medical History / Comment(s): Father is alove at age 65 with history of HTN, bilpolar. Mother Family Medical History: No Reported History, Diabetes Mellitus, Hypertension Additional Family Medical History / Comment(s): There is 52 years old with history of hypertension and diabetes. Patient has 2 sisters with bipolar. No brothers. Medications and Allergies Home Medications Medication Instructions Recorded Confirmed Type Cyclobenzaprine [Flexeril] 10 mg PO TID PRN 05/13/16 06/21/16 History cloNIDine HCL [Catapres] 0.1 mg PO BID 05/13/16 06/21/16 History HYDROcodone/APAP 10-325MG [[place] 1 tab PO Q6H PRN 05/20/16 06/21/16 History 10-325] Allergies Allergy/AdvReac Type Severity Reaction Status Date / Time morphine Allergy Itching Verified 05/20/16 00:41 Physical Exam Vitals: Vital Signs Temp Pulse Pulse Resp BP BP Pulse Ox 06/21/16 11:43 62 06/21/16 11:30 65 06/21/16 09:00 84 14 108/72 98 06/21/16 08:31 71 06/21/16 08:00 97.8 F 71 62 14 102/71 99 06/21/16 07:50 60 06/21/16 07:00 60 18 109/74 99 06/21/16 06:00 57 L 18 86/58 100 06/21/16 05:00 58 L 16 91/61 100 06/21/16 04:00 98 F 58 L 16 97/66 99 06/21/16 03:00 66 16 121/83 100 06/21/16 02:00 64 14 108/75 100 06/21/16 01:50 65 14 109/75 100 06/21/16 01:40 65 15 101/69 100 06/21/16 01:30 64 15 107/73 100 06/21/16 01:20 65 17 107/71 100 06/21/16 01:10 66 17 118/76 96 06/21/16 01:00 79 19 93/74 89 L 06/21/16 00:50 58 L 14 69/49 100 06/21/16 00:40 61 16 67/52 100 06/21/16 00:30 61 16 76/52 100 06/21/16 00:20 61 16 76/52 100 06/21/16 00:10 61 16 76/52 100 06/21/16 00:00 61 62 16 76/52 100 06/20/16 23:50 60 16 81/50 100 06/20/16 23:40 60 16 81/50 100 06/20/16 23:30 60 16 81/50 100 06/20/16 23:20 60 16 82/55 100 06/20/16 23:10 60 17 83/58 100 06/20/16 23:00 60 16 90/59 100 06/20/16 22:50 61 17 94/62 100 06/20/16 22:40 62 16 90/61 100 06/20/16 22:30 67 20 118/75 94 L 06/20/16 22:17 62 18 88/52 100 Intake and Output 06/20/16 06/21/16 06/21/16 22:59 06:59 14:59 Intake Total 13.172 3850.000 356.283 Output Total 345 150 Balance 13.172 3505.000 206.283 Intake: IV 3800 300 Sodium Chloride 0.9% 1, 3700 300 000 ml @ 100 mls/hr IV . Q10H [facility] Rx#:[id number] cefTAZidime 2 gm In 100 Sodium Chloride 0.9% 100 ml @ 100 mls/hr IVPB ONCE STA Rx#:[id number] Intake, IV Titration 13.172 50.000 56.283 Amount Propofol 500 mg In Empty 13.172 33.44 Bag 1 bag @ Titrate IV . Q0M ONE Rx#:[id number] Propofol 500 mg In Empty 50.000 22.843 Bag 1 bag @ Titrate IV . Q0M [facility] Rx#:[id number] Output: Urine 345 150 Other: Voiding Method Indwelling Catheter Indwelling Catheter GENERAL EXAM: Slightly sedated with propofol on mechanical ventilation HEAD: Normocephalic. EYES: Normal reaction of pupils, equal size. NOSE: Clear with pink turbinates. THROAT: No erythema or exudates. NG tube in place NECK: No masses, no JVD. CHEST: No chest wall deformity. LUNGS: Bilaterally coarse lung sounds scattered rhonchi and wheezes noted throughout. CVS: S1 and S2 normal with no audible mumurs, regular rhythm. ABDOMEN: No hepatosplenomegaly, normal bowel sounds, no guarding or rigidity. EXTREMITIES: No edema noted, pedal pulses palpable. SKIN: No rashes CENTRAL NERVOUS SYSTEM: Slightly sedated with propofol on mechanical ventilation Results - Laboratory Findings CBC and BMP: 06/21/16 05:48 06/21/16 05:48 ABG ABG pH 7.31 (7.35-7.45) L 06/21/16 05:34 ABG pCO2 39 mmHg (35-45) 06/21/16 05:34 ABG pO2 112 mmHg (83-108) H 06/21/16 05:34 ABG O2 Saturation 98.0 % (94-97) H 06/21/16 05:34 Abnormal lab findings: Abnormal Labs 06/20/16 06/21/16 06/21/16 22:23 05:34 05:48 WBC 11.0 H RBC 4.29 L ABG pH 7.31 L ABG pO2 112 H ABG HCO3 19 L ABG O2 Saturation 98.0 H Chloride Glucose POC Glucose (mg/dL) 129 H Calcium 06/21/16 05:48 WBC RBC ABG pH ABG pO2 ABG HCO3 ABG O2 Saturation Chloride 112 H Glucose 119 H POC Glucose (mg/dL) Calcium 7.6 L - Diagnostic Findings Chest x-ray: report reviewed, image reviewed Assessment and Plan Plan: Assessment Intentional drug overdose Acute hypoxic respiratory failure secondary to above Right lower lobe pneumonia suspect aspiration Hypotension History of polysubstance abuse Plan Patient should remain on mechanical ventilation today. Patient will be reevaluated in the morning for possible weaning trial from mechanical ventilation. Medications have been reviewed and will be continued. We will add antibiotics in the form of Zosyn. We will add budesonide to his nebulizer treatments. Continue with propofol for light sedation as well as vasopressors for hypotension. We will repeat labs and chest x-ray in the morning. Psych consult has been initiated. Suicidal precautions in place. GI and DVT prophylaxis. We will continue to monitor labs/results and adjust treatment as necessary. I performed an examination of the patient and discussed their management with the nurse practitioner. I have reviewed the nurse practitioner's note and agree with the documented findings and plan of care.
[2016-06-21 13:49] VITALS: BMI 28.1
--- NOTE | 2016-06-21 15:05 | HP ---
DATE OF ADMISSION: 06/20/2016 CHIEF COMPLAINT: Drug overdose and unconsciousness. HISTORY OF PRESENT ILLNESS: Mr. Shine is a 36-year-old male with a known history of depression and about 8 admissions to inpatient psychiatric unit. He was brought to the hospital by EMS with police escort for overdose, intentional, and suicide ideation. Patient apparently called 911 because he took a bunch of medications. He was found with 2 bottles of Abilify and Remeron. His UDS is negative. He is not on pain medications. Patient does have a long-standing history of drug overdose and multiple-drug abuse in the past. Patient also has a history of incarceration. 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 Patient currently does not provide a history. Most of the history was taken from the medical records and nursing staff. No fever. No chills. No recent illnesses. Complete review of systems could not be obtained from the patient. PAST MEDICAL HISTORY: 1. Asthma. 2. Herniated disc in the C-spine and lumbar spine. 3. Seasonal allergies. 4. History of MRSA. 5. Anxiety. 6. Bipolar. 7. ADHD. 8. Depression. 9. Schizoaffective disorder. 10. Antisocial personality disorder. 11. Multiple suicide attempts in the past. PAST SURGICAL HISTORY: 1. Orthopedic surgery. 2. Right shoulder surgery in 2005 due to work-related injury. 3. Bilateral wrist surgery. SOCIAL HISTORY: Patient is currently an everyday smoker, 2-1/2 packs per day. Recently cut back to 3/4 pack per day. History of binge drinking. Patient denied any history of alcoholism. He has a history of heroin and cocaine use by snorting. Denied any IV drug abuse. Patient has a 9-year-old son who lives with the child's mother. FAMILY HISTORY: Father is alive at age 55 with history of hypertension and bipolar. Mother has no reported history, diabetes mellitus and hypertension, and is 52 years old. Patient has 2 sisters with bipolar disorder. ALLERGIES: MORPHINE. HOME MEDICATIONS: 1. Flexeril. 2. Catapres. 3. [place]. 4. Abilify. 5. Neurontin. 6. Remeron. 7. Trileptal. PHYSICAL EXAMINATION: [id number]-old male, currently lying in the bed. He is currently intubated and is not responsive. Patient is not sedated. VITALS: Blood pressure is 108/72, pulse 84, respiration 14, temperature afebrile. Pulse ox 98% on 50% FiO2. HEENT: Atraumatic, normocephalic. Neck is supple. No JVD. Endotracheal tube in place. LUNGS: S1, S2 heard. No murmurs. No gallop. No leg swelling. ABDOMEN: Soft. Bowel sounds are present. LUNGS: Bilateral air entry is present. No wheezing. No crackles. MACHINE TRIMMER could not be assessed completely. Psychiatric could not be assessed completely. LABORATORY DATA: WBC 11.0, hemoglobin 13.1, platelets 269. ABG showed pH of 7.31, pO2 of 112, pCO2 of 39. Sodium 139, potassium 5.0, chloride 112. Bicarb is 22. BUN 12, creatinine 0.96. Calcium 7.6. Urine drug screen is negative. Chest x-ray today shows worsening atelectatic changes in the right lung base. ASSESSMENT: 1. Altered mental status, possible metabolic encephalopathy/anoxic encephalopathy. 2. Acute intentional drug overdose. 3. History of suicide attempt multiple times. 4. History of multiple inpatient psychiatric admissions; about 8 times. 5. Anxiety, depression and bipolar disorder and schizoaffective disorder. 6. Right lower atelectatic changes. 7. Asthma history. 8. Herniated disc in the C-spine. DISCUSSION AND PLAN: Patient ( ) admitted to the hospital after suicide attempt with drug overdose, possibly Abilify and Remeron. Patient apparently had a separation from his 2 days ago. Will continue to monitor the patient in the ICU. Currently sedated and intubated. Pulmonary is following. Psychiatry on board as well. Currently on IV fluids, antibiotics and breathing treatments. Patient is also requiring pressor support. Further recommendations based on the clinical course. Prognosis guarded. Continue with the GI and DVT prophylaxis.
[2016-06-21] MEDS: BUDESONIDE 1 MG/2 ML NEBU INHALATION SCH (19:51)
[2016-06-22] MEDS: HEPARIN SODIUM,PORCINE 5,000 UNIT/ML 1 ML VIAL SQ SCH ×3 (00:34→15:06)
[2016-06-22] MEDS ORDERED: EMPTY BAG 1 BAG ONE ×12 (00:52→22:22)
[2016-06-22] MEDS: PROPOFOL 500 MG in EMPTY BAG 1 BAG IV SCH ×11 (00:54→20:20)
[2016-06-22] MEDS: SODIUM CHLORIDE 0.9% 1,000 ML IV SCH ×3 (03:15→19:30)
[2016-06-22] MEDS: PIPERACILLIN-TAZOBACTAM 3.375 GM in DEXTROSE/WATER 1 50ML.BAG IVPB SCH ×3 (03:51→20:00)
[2016-06-22 04:38] LABS: Basophils % (A) 0 %; CH 29.5; CHCM 32.1; Eosinophils # (A) 0.1 k/uL (0-0.7); Eosinophils % (A) 1 %; HCT 36.5 % (39.0-53.0); HDW 2.27; HGB 11.9 gm/dL (13.0-17.5); Luc # (Auto) 0.11; Luc % (Auto) 1; Lymphocytes # (A) 1.7 k/uL (1.0-4.8); Lymphocytes % (A) 17 %; MCHC 32.5 g/dL (31.0-37.0); MCV 92.3 fL (80.0-100.0); Monocytes # (A) 0.6 k/uL (0-1.0); Monocytes % (A) 6 %; Neutrophils # (A) 7.6 k/uL (1.3-7.7); Neutrophils % (A) 75 %; RBC 3.96 m/uL (4.30-5.90); RDW 14.1 % (11.5-15.5); WBC 10.1 k/uL (3.8-10.6); WBC (Perox) 10.07
[2016-06-22 04:55] LABS: Anion Gap 4 mmol/L; Blood Urea Nitrogen 13 mg/dL (9-20); Carbon Dioxide 24 mmol/L (22-30); Chloride 111 mmol/L (98-107); Glucose 98 mg/dL (74-99); Magnesium 1.8 mg/dL (1.6-2.3); Non-African American GFR(MDRD) >60 (>60 ml/min/1.73 sqM); Phosphorous 3.8 mg/dL (2.5-4.5); Sodium 139 mmol/L (137-145)
[2016-06-22 05:11] LABS: ABG Base Excess -5.2 mmol/L; ABG HCO3 19 mmol/L (21-25); ABG PCO2 35 mmHg (35-45); ABG PH 7.36 (7.35-7.45); ABG PO2 104 mmHg (83-108); ABG TCO2 20 mmol/L (19-24)
[2016-06-22] MEDS ORDERED: Magnesium Replacement Protocol 1 EACH MISC MISCELLANE PRN (05:19)
[2016-06-22] MEDS: MAGNESIUM SULFATE-D5W PMX 1 GM in DEXTROSE/WATER 1 100ML.BAG IVPB SCH ×2 (05:47→06:53)
--- NOTE | 2016-06-22 07:05 | XR ---
EXAMINATION TYPE: XR chest 1V portable DATE OF EXAM: 06/22/2016 6:52 AM COMPARISON: 06/21/2016 HISTORY: SOB, Follow Up FINDINGS: Indwelling tubes and catheters are unchanged. No change in bibasilar opacities. Stable appearance of the cardio-mediastinal structures at this time. Pleural effusion unchanged. IMPRESSION: 1. Stable portable chest. Clinical correlation and follow up until resolution is recommended.
[2016-06-22] MEDS: BUDESONIDE 1 MG/2 ML NEBU INHALATION SCH ×2 (07:27→18:57)
[2016-06-22] MEDS: IPRATROPIUM-ALBUTEROL 3 ML NEB INHALATION SCH ×4 (07:27→18:57)
[2016-06-22] MEDS: PANTOPRAZOLE 40 MG/10 ML VIAL IV SCH (08:16)
[2016-06-22] MEDS: CHLORHEXIDINE GLUCONATE 15 ML CUP MUCOUS MEM SCH ×2 (08:16→21:15)
[2016-06-22] MEDS ORDERED: PROPOFOL 10 MG/ML 50 ML VIAL IV ONE (22:21)
[2016-06-23] MEDS ORDERED: EMPTY BAG 1 BAG ONE ×13 (00:23→23:41)
[2016-06-23] MEDS: PROPOFOL 500 MG in EMPTY BAG 1 BAG IV SCH ×14 (00:29→23:46)
[2016-06-23] MEDS: PIPERACILLIN-TAZOBACTAM 3.375 GM in DEXTROSE/WATER 1 50ML.BAG IVPB SCH ×3 (04:34→20:30)
[2016-06-23 05:01] LABS: ABG Base Excess -1.2 mmol/L; ABG HCO3 23 mmol/L (21-25); ABG PCO2 42 mmHg (35-45); ABG PH 7.36 (7.35-7.45); ABG PO2 138 mmHg (83-108); ABG TCO2 25 mmol/L (19-24)
[2016-06-23 05:18] LABS: Basophils % (A) 0 %; CH 29.4; CHCM 32.2; Eosinophils # (A) 0.2 k/uL (0-0.7); Eosinophils % (A) 3 %; HCT 36.2 % (39.0-53.0); HDW 2.26; HGB 11.6 gm/dL (13.0-17.5); Luc # (Auto) 0.11; Luc % (Auto) 2; Lymphocytes # (A) 1.9 k/uL (1.0-4.8); Lymphocytes % (A) 27 %; MCH 29.5 pg (25.0-35.0); MCHC 32.1 g/dL (31.0-37.0); MCV 91.8 fL (80.0-100.0); Mean Platelet Volume 7.6; Monocytes # (A) 0.5 k/uL (0-1.0); Monocytes % (A) 7 %; Neutrophils # (A) 4.3 k/uL (1.3-7.7); Neutrophils % (A) 62 %; RBC 3.94 m/uL (4.30-5.90); RDW 14.1 % (11.5-15.5); WBC (Perox) 7.19
[2016-06-23 05:28] LABS: Anion Gap 4 mmol/L; Blood Urea Nitrogen 11 mg/dL (9-20); Calcium 7.8 mg/dL (8.4-10.2); Carbon Dioxide 26 mmol/L (22-30); Chloride 109 mmol/L (98-107); Glucose 96 mg/dL (74-99); Magnesium 1.8 mg/dL (1.6-2.3); Non-African American GFR(MDRD) >60 (>60 ml/min/1.73 sqM); Phosphorous 2.9 mg/dL (2.5-4.5); Sodium 139 mmol/L (137-145)
[2016-06-23] MEDS ORDERED: Magnesium Replacement Protocol 1 EACH MISC MISCELLANE PRN (06:32)
[2016-06-23] MEDS: MAGNESIUM SULFATE-D5W PMX 1 GM in DEXTROSE/WATER 1 100ML.BAG IVPB SCH ×2 (06:42→07:54)
--- NOTE | 2016-06-23 07:04 | XR ---
EXAMINATION TYPE: XR chest 1V portable DATE OF EXAM: 06/23/2016 6:58 AM COMPARISON: 06/22/2016 HISTORY: Placement FINDINGS: There are bilateral pleural effusions with cardiomegaly and bibasilar infiltrate. There is a diffuse interstitial pattern. ET and NG tube stable in position. IMPRESSION: 1. Diffuse bilateral infiltrates and pleural effusion correlate for pulmonary edema, ARDS or diffuse pneumonia. Findings have progressed.
[2016-06-23] MEDS: BUDESONIDE 1 MG/2 ML NEBU INHALATION SCH ×2 (07:43→20:53)
[2016-06-23] MEDS: IPRATROPIUM-ALBUTEROL 3 ML NEB INHALATION SCH ×4 (07:43→20:53)
[2016-06-23] MEDS: HEPARIN SODIUM,PORCINE 5,000 UNIT/ML 1 ML VIAL SQ SCH ×3 (07:54→15:58)
[2016-06-23] MEDS: PANTOPRAZOLE 40 MG/10 ML VIAL IV SCH (07:54)
[2016-06-23] MEDS: CHLORHEXIDINE GLUCONATE 15 ML CUP MUCOUS MEM SCH ×2 (07:54→21:29)
--- NOTE | 2016-06-23 08:31 | PN ---
Ari Shine is a 36-year-old male admitted to hospital with drug overdose associated with Remeron. Patient has difficult airway and difficult intubation, has significant bleeding. Now old blood is coming out through the ET tube. Patient continued to be on propofol. He has a history of significant agitation. Right now he is well sedated with propofol drip. Patient remains on full ventilator support. He is currently on assist control of 16, breathing over 24, tidal volume of 400, 5 of PEEP and 50% oxygen. He is tolerating tube feeds well. His current medications are reviewed and include DuoNeb unit dose updraft 4 times a day, Pulmicort 2 times a day, Peridex, heparin for DVT prophylaxis, K-mag-phos replacement protocol. The patient is now off of Levophed drip. Protonix 40 mg daily, Zosyn 3.375 q.8 hourly. The patient is on IV fluid 100 mL an hour as well. Culture results and reports are reviewed. The last sputum culture mixed bacteria has been isolated; however, final ID is pending. Current medications are reviewed. On examination, most recent vitals include blood pressure is 100/60, respiratory rate 18, pulse 64, temperature is 98, saturation of 99%. Last chest x-ray performed earlier today reviewed and compared with the prior x-ray and revealed bibasilar infiltrate and small bilateral effusions, likely aspiration pneumonia. HEENT EXAMINATION: Otherwise unremarkable. Some soft tissue swelling is noted which appears to be stable and improved. Old blood in the ET tube has been noted. NECK: Supple without adenopathy. LUNGS: Bilateral good air entry. Crackles at bases. HEART: Regular rate and rhythm. S1 and S2 audible. ABDOMEN: Soft. No rebound or rigidity. EXTREMITIES: +1 peripheral pulses. NEUROLOGICAL EXAMINATION: Otherwise, awake and alert. Labs reviewed. Medications reviewed as well IMPRESSION: 1. Acute hypoxic respiratory failure. 2. Aspiration pneumonia bilaterally, likely mixed bacterial gram-negative. 3. Drug overdose with a history of substance use. 4. Hypertension, now off of vasopressors. 5. Severe sepsis and septic shock, slowly improving now. Will follow. Critical care time spent 35 minutes.
[2016-06-23] MEDS: SODIUM CHLORIDE 0.9% 1,000 ML IV SCH ×2 (10:12→20:53)
[2016-06-23] MEDS: FUROSEMIDE 10 MG/ML 4 ML VIAL IV SCH (15:07)
[2016-06-24] MEDS ORDERED: IV VANCOMYCIN PER PHARMACY 1 EACH MISC MISCELLANE PRN (00:11)
[2016-06-24] MEDS: HEPARIN SODIUM,PORCINE 5,000 UNIT/ML 1 ML VIAL SQ SCH ×3 (00:14→16:43)
[2016-06-24 00:36] LABS: Glucose,Whole Blood 161 mg/dL (75-99)
[2016-06-24] MEDS ORDERED: EMPTY BAG 1 BAG ONE ×7 (01:08→08:08)
[2016-06-24] MEDS: VANCOMYCIN 1,500 MG in SODIUM CHLORIDE 0.9% 250 ML IVPB SCH ×3 (01:12→16:44)
[2016-06-24] MEDS: PROPOFOL 500 MG in EMPTY BAG 1 BAG IV SCH ×6 (01:16→09:42)
[2016-06-24] MEDS: SODIUM CHLORIDE 0.9% 1,000 ML IV SCH ×2 (04:16→16:44)
[2016-06-24] MEDS: PIPERACILLIN-TAZOBACTAM 3.375 GM in DEXTROSE/WATER 1 50ML.BAG IVPB SCH ×3 (04:18→20:38)
[2016-06-24 04:37] LABS: Basophils % (A) 1 %; CH 29.7; CHCM 33.4; Eosinophils # (A) 0.3 k/uL (0-0.7); Eosinophils % (A) 4 %; HCT 34.9 % (39.0-53.0); HGB 11.7 gm/dL (13.0-17.5); Luc # (Auto) 0.08; Luc % (Auto) 1; Lymphocytes # (A) 1.5 k/uL (1.0-4.8); Lymphocytes % (A) 20 %; MCH 29.8 pg (25.0-35.0); MCHC 33.4 g/dL (31.0-37.0); MCV 89.2 fL (80.0-100.0); Mean Platelet Volume 7.9; Monocytes # (A) 0.5 k/uL (0-1.0); Monocytes % (A) 6 %; Neutrophils # (A) 5.3 k/uL (1.3-7.7); Neutrophils % (A) 69 %; RBC 3.91 m/uL (4.30-5.90); RDW 14.1 % (11.5-15.5); WBC 7.6 k/uL (3.8-10.6); WBC (Perox) 7.05
[2016-06-24 05:12] LABS: Anion Gap 4 mmol/L; Blood Urea Nitrogen 8 mg/dL (9-20); Calcium 7.9 mg/dL (8.4-10.2); Carbon Dioxide 31 mmol/L (22-30); Chloride 105 mmol/L (98-107); Glucose 96 mg/dL (74-99); Magnesium 1.7 mg/dL (1.6-2.3); Non-African American GFR(MDRD) >60 (>60 ml/min/1.73 sqM); Phosphorous 2.7 mg/dL (2.5-4.5); Potassium 3.6 mmol/L (3.5-5.1); Sodium 140 mmol/L (137-145)
[2016-06-24] MEDS ORDERED: Potassium Replacement Protocol 1 EACH MISC MISCELLANE PRN (05:24)
[2016-06-24] MEDS ORDERED: Magnesium Replacement Protocol 1 EACH MISC MISCELLANE PRN (05:24)
[2016-06-24 05:27] LABS: ABG PH 7.42 (7.35-7.45)
[2016-06-24 05:28] LABS: ABG Base Excess 4.4 mmol/L; ABG HCO3 29 mmol/L (21-25); ABG PCO2 45 mmHg (35-45); ABG PO2 88 mmHg (83-108); ABG TCO2 30 mmol/L (19-24)
--- NOTE | 2016-06-24 05:32 | PN ---
DATE OF SERVICE: 05/24/2016 INTERVAL HISTORY: Mr. Shine is a 36-year-old male admitted to the hospital with intentional drug overdose with Remeron and Abilify. Patient currently sedated and intubated and also being treated for aspiration pneumonia. Otherwise hemodynamically fairly stable. complete review of systems could not be obtained from the patient. Current medications include DuoNeb, Pulmicort, Peridex, Lasix, aspirin, Narcan, Levophed p.r.n., Protonix and ( ). PHYSICAL EXAMINATION: A 36-year-old male lying in the bed, currently sedated and intubated. VITALS: Blood pressure is 144/82, pulse is 76, respiration 19, temperature afebrile, pulse ox 95% on mechanical ventilator. HEENT: Atraumatic, normocephalic. Neck is supple. No JVD. Lungs. Air entry is present. No wheezing. Decreased breath sounds. Abd. Bowel sounds are present. soft FISH CONSERVATIONIST: No focal deficit. EXTREMITIES: No edema Pulses palpable bilaterally. PSYCHIATRY: Could not be assessed completely. LABORATORY DATA: WBC 7.0, hemoglobin 11.6, platelets 205. Sodium 139, potassium 4.0, chloride 109, bicarb is 26. BUN 11, creatinine 0.7. IMPRESSION: 1. Metabolic acidosis secondary to drug overdose secondary to infection. 2. Right lower lobe aspiration pneumonia. 3. Sepsis/septic shock secondary to pneumonia . off pressors now 4. Hx of multiple psychiatric admission. 5. Asthma, history. 6. Herniated disc in C-spine. 7. Anxiety, depression, bipolar disorder and schizoaffective disorder. 8. Acute hypoxic respiratory failure secondary to drug overdose and pneumonia. DISCUSSION AND PLAN: The patient will be continued on antibiotics. Continue the IV fluids and follow up closely. Patient was started on IV Lasix due pleural effusion and pulmonary edema on chest x-ray. Prognosis is guarded. Further recommendations based on clinical course. MTDD
[2016-06-24] MEDS ORDERED: POTASSIUM CHLORIDE ORAL LIQUID 40 MEQ/30 ML CUP NG-TUBE SCH (06:30)
[2016-06-24] MEDS: MAGNESIUM SULFATE-D5W PMX 1 GM in DEXTROSE/WATER 1 100ML.BAG IVPB SCH ×2 (07:02→08:11)
[2016-06-24] MEDS: BUDESONIDE 1 MG/2 ML NEBU INHALATION SCH ×2 (07:47→20:42)
[2016-06-24] MEDS: IPRATROPIUM-ALBUTEROL 3 ML NEB INHALATION SCH ×4 (07:47→20:42)
--- NOTE | 2016-06-24 07:48 | XR ---
EXAMINATION TYPE: XR chest 1V portable DATE OF EXAM: 06/24/2016 7:14 AM CLINICAL HISTORY: Difficulty breathing progress study. TECHNIQUE: Single AP portable upright view of the chest is obtained. COMPARISON: Chest x-ray from one day earlier FINDINGS: An endotracheal tube, orogastric tube and right internal jugular central venous catheter a re all stable in appearance. There is interval improvement in central vascular congestion and bilater al central airspace opacities. There is persistent right greater than left bibasilar opacity consiste nt with infiltrate and/or atelectasis and probable small bilateral pleural effusions. Improved inspir ation is seen. Cardiac silhouette size is stable and upper limits of normal. Degenerative change righ t glenohumeral joint is redemonstrated. IMPRESSION: Improved inspiration with resolving central vascular congestion and central alveolar anoop a, persistent right greater than left bibasilar infiltrate and/or atelectasis and likely small bilate ral pleural effusions.
[2016-06-24] MEDS: CHLORHEXIDINE GLUCONATE 15 ML CUP MUCOUS MEM SCH (08:09)
[2016-06-24] MEDS: PANTOPRAZOLE 40 MG/10 ML VIAL IV SCH (08:11)
[2016-06-24] MEDS: FUROSEMIDE 10 MG/ML 4 ML VIAL IV SCH (08:11)
[2016-06-24 11:15] LABS: ABG PH 7.51 (7.35-7.45)
[2016-06-24 11:16] LABS: ABG Base Excess 6.3 mmol/L; ABG HCO3 30 mmol/L (21-25); ABG Oxygen Saturation 95.3 % (94-97); ABG PCO2 38 mmHg (35-45); ABG PO2 70 mmHg (83-108); ABG TCO2 31 mmol/L (19-24)
--- NOTE | 2016-06-24 12:43 | P.PN ---
Subjective This is a 36-year-old male patient being evaluated and examined today in the intensive care unit. This patient was brought into the emergency room on 2016 via EMS with police escort for intentional overdose with suicidal ideations. The patient called 911 himself after he took a bunch of medications he was found with 2 empty bottles of Abilify and Remeron. This patient has a long-standing history of recurrent drug overdoses and multiple illicit drug abuse. During examination in the emergency room the patient was very drowsy but had no obvious injuries at that time. Poison control was contacted and recommended the emergency room put an NG tube and charcoal rather than gastric lavage. The patient was extensively combative with the staff and repeatedly kicked them. The patient did have some episodic for when they attempted the NG tube. It was then felt at that time due to the patient's extensive combativeness it was safeR not continue with the NG tube at that time. The patient was arousable and his vital s signs were stable. Shortly after the patient actually became unresponsive and emergent intubation followed. Please see ER notes regarding intubation. Upon examination the patient is on mechanical ventilation with propofol for light sedation. Patient is on mechanical ventilation with an assist control of 16 tidal volume of 400 FiO2 50% and a PEEP of 5. He has also been tolerating his tube feedings. The patient is awake and somewhat drowsy and slowly responds to commands. Chest x-ray was reviewed today. Patient also has a right jugular central line placed. Patient will be put on a sedation holiday and will be put on CPAP for a weaning trial. Objective - Vital Signs Vital signs: Vital Signs Temp 97.9 F 06/24/16 08:00 Pulse 87 06/24/16 12:00 Resp 16 06/24/16 12:00 BP 140/82 06/24/16 12:00 Pulse Ox 96 06/24/16 12:00 Intake & Output 06/23/16 06/24/16 06/24/16 18:59 06:59 18:59 Intake Total 3480.470 4510.572 1167.508 Output Total 3190 705 4960 Balance -3940.561 6111.572 -3792.492 Weight 81.647 kg 81.647 kg Intake: IV 1100 1312.5 762.5 Piperacillin-Tazobactam 3 50 62.5 12.5 .375 gm In Dextrose/Water 1 50ml.bag @ 12.5 mls/hr IVPB Q8H JAZMINE Rx#: [id number] Sodium Chloride 0.9% 1, 1050 1000 500 000 ml @ 100 mls/hr IV . Q10H JAZIMNE Rx#:[id number] Vancomycin 1,500 mg In 250 250 Sodium Chloride 0.9% 250 ml @ 125 mls/hr IVPB Q8H JAZMINE Rx#:[id number] Intake, IV Titration 297.718 291.072 210.008 Amount Magnesium Sulfate-D5w Pmx 100 1 gm In Dextrose/Water 1 100ml.bag @ 100 mls/hr IVPB Q1H JAZMINE Rx#: [id number] Propofol 500 mg In Empty 297.718 291.072 110.008 Bag 1 bag @ Titrate IV . Q0M JAZMINE Rx#:[id number] Tube Feeding 560 640 165 Lipid 1 Sodium Chloride 0.9% 1, 1 000 ml @ 100 mls/hr IV . Q10H JAZMINE Rx#:[id number] Other 60 30 Output: Urine 3190 705 4960 Other: Voiding Method Indwelling Catheter Indwelling Catheter Indwelling Catheter - Exam GENERAL EXAM: On light sedation, comfortable in no apparent distress. HEAD: Normocephalic. EYES: Normal reaction of pupils, equal size. NOSE: Clear with pink turbinates. THROAT: No erythema or exudates. NECK: No masses, no JVD. CHEST: No chest wall deformity. LUNGS: Equal air entry with no crackles, wheeze, rhonchi or dullness. On mechanical ventilation CVS: S1 and S2 normal with no audible mumurs, regular rhythm. ABDOMEN: No hepatosplenomegaly, normal bowel sounds, no guarding or rigidity. EXTREMITIES: No edema noted, pedal pulses palpable. SKIN: No rashes CENTRAL NERVOUS SYSTEM: Patient on propofol for sedation - Labs CBC & Chem 7: 06/24/16 04:30 06/24/16 04:30 Labs: Abnormal Lab Results - Last 24 Hours (Table) 06/24/16 06/24/16 06/24/16 Range/Units 00:35 04:30 04:30 RBC 3.91 L (4.30-5.90) m/uL Hgb 11.7 L (13.0-17.5) gm/dL Hct 34.9 L (39.0-53.0) % ABG pH (7.35-7.45) ABG pO2 (83-108) mmHg ABG HCO3 (21-25) mmol/L ABG Total CO2 (19-24) mmol/L Carbon Dioxide 31 H (22-30) mmol/L BUN 8 L (9-20) mg/dL POC Glucose (mg/dL) 161 H (75-99) mg/dL Calcium 7.9 L (8.4-10.2) mg/dL 06/24/16 06/24/16 Range/Units 05:00 10:38 RBC (4.30-5.90) m/uL Hgb (13.0-17.5) gm/dL Hct (39.0-53.0) % ABG pH 7.51 H (7.35-7.45) ABG pO2 70 L (83-108) mmHg ABG HCO3 29 H 30 H (21-25) mmol/L ABG Total CO2 30 H 31 H (19-24) mmol/L Carbon Dioxide (22-30) mmol/L BUN (9-20) mg/dL POC Glucose (mg/dL) (75-99) mg/dL Calcium (8.4-10.2) mg/dL Microbiology - Last 24 Hours (Table) 06/21/16 15:47 Gram Stain - Final Sputum Sputum Culture - Final Staphylococcus aureus Assessment and Plan Plan: Assessment Intentional drug overdose Acute hypoxic respiratory failure secondary to above Right lower lobe pneumonia suspect aspiration Hypotension History of polysubstance abuse Severe sepsis and septic shock, improved Plan Patient will be put on a sedation holiday and will be trialed for CPAP and weaning parameters. Patient will have ABGs drawn 30 minutes after CPAP pending results patient could be extubated today. Medications have been reviewed and will be continued. Continue antibiotics in the form of Zosyn. Continue his nebulizer treatments. We will repeat labs and chest x-ray in the morning. Psych consult has been initiated, if the patient is extubated today therefore psych will be notified for re-evauluation. Suicidal precautions in place. GI and DVT prophylaxis. We will continue to monitor labs/results and adjust treatment as necessary. I performed an examination of the patient and discussed their management with the nurse practitioner. I have reviewed the nurse practitioner's note and agree with the documented findings and plan of care.
[2016-06-24] MEDS: HYDROcodone/APAP 10-325MG 1 EACH TAB PO PRN ×2 (12:44→18:46)
--- NOTE | 2016-06-24 15:06 | PN ---
CRITICAL CARE TIME SPENT: 35 minutes. Mr. Shine is a 36-year-old male admitted with drug overdose and acute respiratory failure. Patient is off of vasopressors. He was resuscitated with fluids. He required propofol as well. He has significant hemoptysis through the ET tube due to likely traumatic intubation and OG tube; however, that has been stabilizing. Dark, old blood, however, has been aspirated. Patient remains on full respiratory support. Currently patient is on assist control of 16, breathing 18, tidal volume of 400, 5 of PEEP and FiO2 able to go down to 40%. His current medications reviewed and include: 1. DuoNeb unit dose 4 times a day. 2. Pulmicort 2 times a day. 3. Lasix 40 mg IV daily. 4. Heparin for DVT prophylaxis. 5. K-mag-phos replacement protocol. 6. Levophed is now off. 7. Zosyn 3.375 along with 8. Propofol. 9. IV fluid 100 mL an hour. Culture results and reports are reviewed. The sputum culture that has been obtained revealed moderate Staph; final ID, however, is pending. His vitals include blood pressure is 144/80, respiratory rate 17, pulse of 98, temperature is 97% on 40% oxygen. HEENT: Otherwise unremarkable except as dictated above. NECK: Supple. LUNGS: Bilateral coarse breath sounds with basal crackles. HEART: Regular rate and rhythm. ABDOMEN: Soft. Tolerating tube feeds very well. Hypoactive bowel sounds. No rebound or rigidity. EXTREMITIES: +1 peripheral pulses. NEUROLOGICAL EXAMINATION: Sedated with propofol as well as requiring Ativan as needed. Chest x-ray performed, revealed a dense bilateral infiltrate and small pleural effusion. IMPRESSION: 1. Aspiration pneumonia possibly related to Staphylococcus and mixed bacterial and gram-negative pneumonia. Continue patient with breathing treatments and Zosyn. Will add vancomycin as well. 2. Acute hypoxic respiratory failure related to above. 3. Drug overdose and major depression with extensive psychiatric history. 4. Electrolyte imbalance, overall progressively improving. PLAN AND RECOMMENDATIONS: As above. Will initiate weaning in next 24 to 48 hours, but today as patient is not ready yet, will follow.
--- NOTE | 2016-06-24 16:01 | PN ---
DATE OF SERVICE: 06/22/2016 INTERVAL HISTORY: Mr. Shine is a 36 -year-old male with a known history of depression with multiple psychiatric admissions, was brought to the hospital with intentional overdose and suicidal ideation. Patient took Abilify and Remeron. UDS is negative. Currently ( ) the patient is also being treated for aspiration pneumonia, possible septic shock. Possible sepsis/septic shock currently off pressors. Complete review of systems could not be obtained from the patient. CURRENT MEDICATIONS: Reviewed. PHYSICAL EXAMINATION: A 36 -year-old male lying in bed, currently sedated and intubated. VITALS: Blood pressure 107/62, pulse is 79, respirations 21, temperature afebrile. Pulse ox 98% on 50% FIO2. HEENT: Atraumatic. Normocephalic. Neck is supple. No JVD. CVS: S1, S2 heard. No murmurs. No gallops. LUNGS: Bilateral air entry is present. Decreased breath sounds basally. Right sided rhonchi positive. ABDOMEN: Soft. Bowel sounds are present. FORESTRY FIRE AID: Could not be assessed completely. No focal deficits noted. EXTREMITIES: No edema. Pulses palpable bilaterally. LABORATORY DATA: WBC 10.1, hemoglobin 11.9, platelets 214. Sodium 139, potassium 4.0, chloride 111, bicarb is 24. BUN 13, creatinine 0.84. Calcium 8.0, magnesium 1.8. IMPRESSION: 1. Altered mental status secondary to metabolic encephalopathy with drug overdose with Abilify and Remeron. 2. History of multiple suicide attempts and inpatient psychiatric admissions. 3. Sepsis/septic shock secondary to aspiration pneumonia. 4. Acute hypoxic respiratory failure secondary to drug overdose. 5. History of asthma. 6. Herniated disc in the C-spine. 7. Anxiety, depression and bipolar disorder. 8. Schizoaffective disorder. DISCUSSION AND PLAN: The patient will be continued on mechanical ventilation and continue with antibiotics and continue the current management. Prognosis is guarded. Further recommendations based on clinical course and expect weaning trial tomorrow. Pulmonary is on board. [facility]
[2016-06-24] MEDS: GABAPENTIN 300 MG CAP PO SCH ×2 (16:43→22:12)
[2016-06-24] MEDS: CYCLOBENZAPRINE 10 MG TAB PO PRN (16:44)
[2016-06-25] MEDS: SODIUM CHLORIDE 0.9% 1,000 ML IV SCH ×2 (00:16→12:58)
[2016-06-25] MEDS: HEPARIN SODIUM,PORCINE 5,000 UNIT/ML 1 ML VIAL SQ SCH ×3 (00:16→16:00)
[2016-06-25] MEDS: HYDROcodone/APAP 10-325MG 1 EACH TAB PO PRN ×4 (00:17→20:11)
[2016-06-25] MEDS: VANCOMYCIN 1,500 MG in SODIUM CHLORIDE 0.9% 250 ML IVPB SCH ×2 (01:05→08:28)
[2016-06-25] MEDS: PIPERACILLIN-TAZOBACTAM 3.375 GM in DEXTROSE/WATER 1 50ML.BAG IVPB SCH ×3 (04:00→21:07)
[2016-06-25] MEDS: CYCLOBENZAPRINE 10 MG TAB PO PRN ×3 (05:38→21:18)
[2016-06-25 05:51] LABS: CHCM 33.2; Eosinophils # (A) 0.4 k/uL (0-0.7); Eosinophils % (A) 4 %; MCHC 33.2 g/dL (31.0-37.0); RDW 13.9 % (11.5-15.5)
[2016-06-25 06:02] LABS: Anion Gap 6 mmol/L; Blood Urea Nitrogen 8 mg/dL (9-20); Calcium 8.3 mg/dL (8.4-10.2); Carbon Dioxide 32 mmol/L (22-30); Chloride 105 mmol/L (98-107); Glucose 83 mg/dL (74-99); Magnesium 1.7 mg/dL (1.6-2.3); Non-African American GFR(MDRD) >60 (>60 ml/min/1.73 sqM); Phosphorous 3.6 mg/dL (2.5-4.5); Potassium 3.9 mmol/L (3.5-5.1); Sodium 143 mmol/L (137-145)
[2016-06-25] MEDS ORDERED: Potassium Replacement Protocol 1 EACH MISC MISCELLANE PRN (06:09)
[2016-06-25] MEDS ORDERED: Magnesium Replacement Protocol 1 EACH MISC MISCELLANE PRN (06:10)
[2016-06-25 06:25] LABS: Basophils % (A) 0 %; CH 29.8; HCT 36.3 % (39.0-53.0); HDW 2.38; Luc # (Auto) 0.08; Luc % (Auto) 1; Lymphocytes % (A) 20 %; MCV 90.2 fL (80.0-100.0); Mean Platelet Volume 7.5; Monocytes # (A) 0.5 k/uL (0-1.0); Monocytes % (A) 5 %; Neutrophils # (A) 7.5 k/uL (1.3-7.7); Neutrophils % (A) 71 %; RBC 4.02 m/uL (4.30-5.90); WBC 10.5 k/uL (3.8-10.6); WBC (Perox) 9.45
[2016-06-25] MEDS: MAGNESIUM SULFATE-D5W PMX 1 GM in DEXTROSE/WATER 1 100ML.BAG IVPB SCH ×2 (06:44→08:26)
[2016-06-25] MEDS ORDERED: POTASSIUM CHLORIDE ER 20 MEQ TAB.ER PO SCH (07:00)
[2016-06-25] MEDS ORDERED: VANCOMYCIN TROUGH DUE 1 EACH MISC MISCELLANE ONE (08:00)
[2016-06-25] MEDS: GABAPENTIN 300 MG CAP PO SCH ×3 (08:28→21:18)
[2016-06-25] MEDS: FUROSEMIDE 10 MG/ML 4 ML VIAL IV SCH (08:29)
[2016-06-25] MEDS: PANTOPRAZOLE 40 MG/10 ML VIAL IV SCH (08:29)
[2016-06-25] MEDS: IPRATROPIUM-ALBUTEROL 3 ML NEB INHALATION SCH ×4 (09:12→19:48)
[2016-06-25] MEDS: BUDESONIDE 1 MG/2 ML NEBU INHALATION SCH ×2 (09:12→19:48)
--- NOTE | 2016-06-25 11:29 | P.PN ---
Subjective This is a 36-year-old male patient being evaluated and examined today in the intensive care unit. This patient was brought into the emergency room on 2016 via EMS with police escort for intentional overdose with suicidal ideations. The patient called 911 himself after he took a bunch of medications he was found with 2 empty bottles of Abilify and Remeron. This patient has a long-standing history of recurrent drug overdoses and multiple illicit drug abuse. During examination in the emergency room the patient was very drowsy but had no obvious injuries at that time. Poison control was contacted and recommended the emergency room put an NG tube and charcoal rather than gastric lavage. The patient was extensively combative with the staff and repeatedly kicked them. The patient did have some episodic for when they attempted the NG tube. It was then felt at that time due to the patient's extensive combativeness it was safeR not continue with the NG tube at that time. The patient was arousable and his vital s signs were stable. Shortly after the patient actually became unresponsive and emergent intubation followed. Please see ER notes regarding intubation. Upon examination the patient is resting up in bed on 2 L of supplemental oxygen via nasal cannula. The patient was successfully extubated yesterday without incident. The patient is alert and awake and has been tolerating his diet and has a good appetite. Patient states that he is feeling good denies any cough congestion or sputum production at this time. Patient also has a right jugular central line placed. Patient could be downgraded from the intensive care unit. Objective - Vital Signs Vital signs: Vital Signs Temp 98.4 F 06/25/16 08:00 Pulse 90 06/25/16 10:00 Resp 22 06/25/16 10:00 BP 107/56 06/25/16 10:00 Pulse Ox 92 L 06/25/16 10:00 Intake & Output 06/24/16 06/25/16 06/25/16 18:59 06:59 18:59 Intake Total 2032.508 1187.5 350 Output Total 6185 1700 2500 Balance -4152.492 -512.5 -2150 Weight 83.2 kg 83.2 kg Intake: IV 1387.5 1037.5 150 Piperacillin-Tazobactam 3 12.5 87.5 .375 gm In Dextrose/Water 1 50ml.bag @ 12.5 mls/hr IVPB Q8H JAZMINE Rx#: [id number] Sodium Chloride 0.9% 1, 1000 950 150 000 ml @ 100 mls/hr IV . Q10H JAZMINE Rx#:[id number] Vancomycin 1,500 mg In 375 Sodium Chloride 0.9% 250 ml @ 125 mls/hr IVPB Q8H JAZMINE Rx#:[id number] Intake, IV Titration 210.008 200 Amount Magnesium Sulfate-D5w Pmx 100 1 gm In Dextrose/Water 1 100ml.bag @ 100 mls/hr IVPB Q1H JAZMINE Rx#: [id number] Magnesium Sulfate-D5w Pmx 200 1 gm In Dextrose/Water 1 100ml.bag @ 100 mls/hr IVPB Q1H JAZMINE Rx#: [id number] Propofol 500 mg In Empty 110.008 Bag 1 bag @ Titrate IV . Q0M JAZMINE Rx#:[id number] Oral 240 150 Tube Feeding 165 Other 30 Output: Urine 6185 1700 2500 Other: Voiding Method Indwelling Catheter Indwelling Catheter Indwelling Catheter - Exam GENERAL EXAM: Alert, active, comfortable in no apparent distress. HEAD: Normocephalic. EYES: Normal reaction of pupils, equal size. NOSE: Clear with pink turbinates. THROAT: No erythema or exudates. NECK: No masses, no JVD. CHEST: No chest wall deformity. LUNGS: Equal air entry with no crackles, wheeze, rhonchi or dullness. Bases diminished CVS: S1 and S2 normal with no audible mumurs, regular rhythm. ABDOMEN: No hepatosplenomegaly, normal bowel sounds, no guarding or rigidity. EXTREMITIES: No edema noted, pedal pulses palpable. SKIN: No rashes CENTRAL NERVOUS SYSTEM: No focal deficits, tone is normal in all 4 extremities. - Labs CBC & Chem 7: 06/25/16 05:30 06/25/16 05:30 Labs: Abnormal Lab Results - Last 24 Hours (Table) 06/20/16 06/25/16 06/25/16 Range/Units 18:20 05:30 05:30 RBC 4.02 L (4.30-5.90) m/uL Hgb 12.0 L (13.0-17.5) gm/dL Hct 36.3 L (39.0-53.0) % Carbon Dioxide 32 H (22-30) mmol/L BUN 8 L (9-20) mg/dL Calcium 8.3 L (8.4-10.2) mg/dL Oxcarbazepine 4.3 L (10-35) ug/mL Microbiology - Last 24 Hours (Table) 06/21/16 15:47 Gram Stain - Final Sputum Sputum Culture - Final Staphylococcus aureus Assessment and Plan Plan: Assessment Intentional drug overdose Acute hypoxic respiratory failure secondary to above Right lower lobe pneumonia suspect aspiration Hypotension History of polysubstance abuse Severe sepsis and septic shock, improved Plan Patient could be downgraded from the intensive care unit. Medications have been reviewed and will be continued. Continue antibiotics in the form of Zosyn. Continue his nebulizer treatments. Continue with supplemental oxygen to maintain oxygen saturations greater than 92%. We will repeat labs in the morning. Psych will be end of the patient today. Suicidal precautions in place. GI and DVT prophylaxis. We will continue to monitor labs/results and adjust treatment as necessary. I performed an examination of the patient and discussed their management with the nurse practitioner. I have reviewed the nurse practitioner's note and agree with the documented findings and plan of care.
--- NOTE | 2016-06-25 12:37 | PN ---
DATE OF SERVICE: 06/24/2016 INTERVAL HISTORY: Mr. Shine is a 36-year-old male admitted to the hospital with intentional drug overdose and acute respiratory failure. The patient overdosed with Remeron and Abilify. Currently the patient is extubated now and is complaining of bilateral wrist pain and back pain. Patient does take Neurontin and Flexeril at home and is requesting to be started on that. Otherwise, patient is being treated for aspiration pneumonia. He is hemodynamically fairly stable. ( ). No complaint of chest pain. No worsening shortness of breath. No headache or dizziness or lightheadedness. CURRENT MEDICATIONS: Reviewed. PHYSICAL EXAMINATION: A 36-year-old male, lying in bed comfortably; awake, alert and oriented x3, appears to be in no distress. VITALS: Blood pressure is 115/57, pulse is 83, respirations 20, temperature afebrile, pulse ox 96% room air. HEENT: Atraumatic, normocephalic. NECK: Supple. No JVD. CVS: S1 and S2 heard. No murmurs. No gallop. LUNGS: Bilateral air entry is present. Rhonchi positive. Nonlabored breathing. ABDOMEN: Soft, nontender. Bowel sounds are present. MARKET DEVELOPMENT ANALYST: Awake, alert and oriented x3. No focal deficit. EXTREMITIES: No edema. Pulses palpable bilaterally. No clubbing or cyanosis. PSYCHIATRIC: Cooperative. Denied any suicide ideation. LABORATORY DATA: WBC 7.6, hemoglobin 9.7, platelets 203. Sodium 140, potassium 3.6, chloride 105, bicarb 31, BUN 8, creatinine 0.7, on admission 1.7. Sputum cultures growing Staph aureus. IMPRESSION: 1. Metabolic encephalopathy secondary to drug overdose secondary to infection. 2. Right lower lobe suspected aspiration pneumonia. 3. Sepsis/septic shock secondary to pneumonia, off pressors now. 4. Acute hypoxic respiratory failure secondary to drug overdose and pneumonia. The patient has a history of multiple psychiatric admission. 5. Asthma history. 6. Herniated disk in C-spine. 7. Anxiety, depression, bipolar disorder and schizoaffective disorder. DISCUSSION AND PLAN: Patient will be continued on current medications and provided with pain management. Psychiatry has been consulted for further evaluation. Will continue the current management and further recommendations based on clinical course.
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
[2016-06-26] MEDS: HEPARIN SODIUM,PORCINE 5,000 UNIT/ML 1 ML VIAL SQ SCH ×3 (00:05→15:48)
[2016-06-26] MEDS: HYDROcodone/APAP 10-325MG 1 EACH TAB PO PRN ×3 (03:14→15:47)
[2016-06-26] MEDS: PIPERACILLIN-TAZOBACTAM 3.375 GM in DEXTROSE/WATER 1 50ML.BAG IVPB SCH ×2 (04:02→11:20)
[2016-06-26] MEDS: IPRATROPIUM-ALBUTEROL 3 ML NEB INHALATION SCH ×3 (07:36→16:37)
[2016-06-26] MEDS: BUDESONIDE 1 MG/2 ML NEBU INHALATION SCH (07:37)
[2016-06-26] MEDS: GABAPENTIN 300 MG CAP PO SCH ×2 (08:21→15:47)
[2016-06-26] MEDS: FUROSEMIDE 10 MG/ML 4 ML VIAL IV SCH (08:21)
[2016-06-26] MEDS: PANTOPRAZOLE 40 MG/10 ML VIAL IV SCH (08:22)
[2016-06-26] MEDS ORDERED: Magnesium Replacement Protocol 1 EACH MISC MISCELLANE PRN (10:22)
[2016-06-26] MEDS ORDERED: Potassium Replacement Protocol 1 EACH MISC MISCELLANE PRN (10:22)
--- NOTE | 2016-06-26 11:41 | PN ---
DATE OF SERVICE: 06/25/2016 INTERVAL HISTORY: Mr. Shine is a 36-year-old male admitted to the hospital with intentional drug overdose with Remeron and Abilify, currently extubated and then transferred to Med/Surg unit today. Otherwise, patient's pain is fairly controlled with Neurontin and Flexeril, which he takes at home and patient also being treated for pneumonia, possible aspiration with Zosyn. Pulmonary is following this patient and anticipate transfer to psychiatric unit as per psychiatric recommendations possibly in the next 24 hours with more clinical improvement. Complete review of systems negative except as the above. No chest pain. No short of breath. No nausea, vomiting or abdominal pain. CURRENT MEDICATIONS: Reviewed. PHYSICAL EXAMINATION: A 36-year-old male lying on the bed, awake, alert and oriented x3. He appears to be in no apparent distress. VITALS: Blood pressure is 127/75, pulse is 79, respirations 16, temperature afebrile, 98.8, saturating at 94% on room air. HEENT: Atraumatic, normocephalic. Neck is supple. No JVD. CVS EXAM: S1 and S2 heard. No murmurs. No gallops. LUNGS: Bilateral air entry is present. Decreased breath sounds basally, especially left side and nonlabored breathing. No wheezing. ABDOMEN: Soft, nontender. Bowel sounds are present. DOG OR ANIMAL SITTER: Awake, alert, oriented x3. No focal deficits. EXTREMITIES: No edema. Pulses palpable bilaterally. No clubbing or cyanosis. PSYCHIATRIC: Cooperative. LABORATORY DATA: WBC 10.5, hemoglobin 12.0, platelets 223. Sodium 143, potassium 3.9, chloride 105, bicarb 32. BUN 8, creatinine 0.72. IMPRESSION: 1. Acute hypoxic respiratory failure secondary to drug overdose, currently extubated. 2. Metabolic encephalopathy secondary to drug overdose, resolved now. 3. Right lower lobe pneumonia suspect aspiration. 4. Severe sepsis/septic shock secondary to pneumonia, off pressors now. 5. History of multiple psychiatric admissions and multiple suicide attempts in the past. 6. Asthma, stable. 7. Herniated disc in C-spine. 8. Anxiety, depression, bipolar disorder and schizoaffective disorder. DISCUSSION AND PLAN: The patient will be continued on the current management including antibiotics and patient transferred to inpatient psychiatric unit once clinically stable in the next 24 hours. Pulmonary is on board.
--- NOTE | 2016-06-26 11:54 | P.DS ---
Providers Date of admission: 06/20/16 21:27 Expected date of discharge: 06/26/16 Attending physician: Kendy Garcia Consults: 06/20/16 20:03 Consult Physician Routine Consulting Provider: Santi Jenkins Consult Reason/Comments: overdose Do you want consulting provider notified?: Yes 06/20/16 21:51 Consult Physician Routine Consulting Provider: Leonidas Roberts Consult Reason/Comments: ICU management Do you want consulting provider notified?: Already Contacted Primary care physician: Stated None Dr. Polanco ] Hospital Course: Final Diagnoses: 1. Metabolic encephalopathy secondary to drug overdose and infection, improved 2. Right lower lobe pneumonia, suspect aspiration pneumonia 3. Sepsis, septic shock secondary to pneumonia, status post pressors 4. Chronic proximal asthma 5. Herniated disc in C-spine 6. Anxiety, depression, bipolar disorder and schizoaffective disorder Hospital course: This a 36-year-old gentleman admitted initially into the ICU with intentional drug overdose of Remeron, Abilify, acute respiratory failure, aspiration pneumonia and multiple other medical issues. Evaluated by pulmonary. Patient required intubation and pressor support. Patient extubated and off of pressors. Treated with IV antibiotics, nebulized bronchodilators with significant Clinical improvement. Evaluated by psychiatry, Dr. Jenkins in recommends transfer to our mental health unit once medically stable. Patient has been cleared by all consults for discharge to MHU. Microbiology 06/21/16 15:47 Sputum Gram Stain - Final 06/21/16 15:47 Sputum Sputum Culture - Final Staphylococcus aureus Patient Condition at Discharge: Stable Plan - Discharge Summary New Discharge Prescriptions: Amoxic-Pot Clav 875-125Mg [Augmentin 875-125] 1 tab PO Q12HR #12 tablet Pantoprazole Sodium [Protonix] 40 mg PO DAILY #30 tablet.dr Discharge Medication List Cyclobenzaprine [Flexeril] 10 mg PO TID PRN 05/13/16 [History] Gabapentin [Neurontin] 300 mg PO TID 30 Days 05/15/16 [Rx] HYDROcodone/APAP 10-325MG [[place] 10-325] 1 tab PO Q6H PRN 05/20/16 [History] Amoxic-Pot Clav 875-125Mg [Augmentin 875-125] 1 tab PO Q12HR #12 tablet [Rx] Budesonide [Pulmicort] 1 mg INHALATION RT-BID neb 06/26/16 [Rx] Ipratropium-Albuterol Nebulize [Duoneb 0.5 mg-3 mg/3 ml Soln] 3 ml INHALATION RT -QID neb 06/26/16 [Rx] Pantoprazole Sodium [Protonix] 40 mg PO DAILY #30 tablet. 06/26/16 [Rx] Follow up Appointment(s)/Referral(s): Patel Polanco MD [REFERRING] - 3 Days Leonidas Roberts MD [STAFF PHYSICIAN] - 1 Week Activity/Diet/Wound Care/Special Instructions: CBC,bmp tomorrow Final clearance & Dc rec. pending from Pulmonary DIet: cardiac Activity: limited TIll F/U Discharge Disposition: TRANSFER TO PSYCH HOSP/UNIT
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
[2016-06-26 15:36] VITALS: BP 141/81; RESP 16; TEMP 98
[2016-06-26 16:39] VITALS: PULSE 81
== END 2016-06-26 17:04 | disposition psychiatric hospital, planned readmission (93) | DRG 917 ==
LOC: EC 16:21 → 6ICU 21:27 → 4MS4W 06-25 13:49
PROVIDERS: ADMIT Hospitalist; ATTEND Hospitalist
PROC: 0BH17EZ Insertion of Endotracheal Airway into Trachea, Via Natural or Artificial Opening (ICD-10-PCS; principal; 2016-06-20)
PROC: 5A1945Z Respiratory Ventilation, 24-96 Consecutive Hours (ICD-10-PCS; principal; 2016-06-20)
DX: T43.592A Poisoning by other antipsychotics and neuroleptics, intentional self-harm, initial encounter (principal); G92 Toxic encephalopathy; J96.01 Acute respiratory failure with hypoxia; R65.21 Severe sepsis with septic shock; J69.0 Pneumonitis due to inhalation of food and vomit; A41.9 Sepsis, unspecified organism; J90 Pleural effusion, not elsewhere classified; J81.1 Chronic pulmonary edema; E87.2 Acidosis; F31.9 Bipolar disorder, unspecified; F25.9 Schizoaffective disorder, unspecified; T43.022A Poisoning by tetracyclic antidepressants, intentional self-harm, initial encounter; F41.9 Anxiety disorder, unspecified; F60.2 Antisocial personality disorder; F90.9 Attention-deficit hyperactivity disorder, unspecified type; F11.10 Opioid abuse, uncomplicated; F14.10 Cocaine abuse, uncomplicated; F17.210 Nicotine dependence, cigarettes, uncomplicated; I10 Essential (primary) hypertension; J45.909 Unspecified asthma, uncomplicated; Z79.82 Long term (current) use of aspirin; Z82.49 Family history of ischemic heart disease and other diseases of the circulatory system; Z86.14 Personal history of Methicillin resistant Staphylococcus aureus infection; Z91.5 Personal history of self-harm; Z88.5 Allergy status to narcotic agent
CPT/HCPCS: 36415; 36600; 71010; 80048; 80053; 80183; 80202; 80306; 80320; 82550; 82553; 82805; 83520; 83735; 84100; 84484; 85025; 87070; 87077; 87186; 87205; 93005; 94002; 94003; 94640

== ENCOUNTER 2016-06-26 16:19 | Inpatient (IN) | payer MEDICAID, OTHER ==
[2016-06-26] MEDS ORDERED: ACETAMINOPHEN TAB 325 MG TAB PO PRN (17:54)
[2016-06-26] MEDS ORDERED: ZIPRASIDONE 20 MG VIAL IM PRN (17:54)
[2016-06-26] MEDS ORDERED: MAGNESIUM HYDROXIDE 2,400 MG/10 ML CUP PO PRN (17:54)
[2016-06-26] MEDS ORDERED: MAG HYDROX/AL HYDROX/SIMETH 30 ML CUP PO PRN (17:54)
[2016-06-26] MEDS: HYDROcodone/APAP 5-325MG 1 EACH TAB PO PRN (20:15)
[2016-06-26] MEDS: CYCLOBENZAPRINE 10 MG TAB PO PRN (20:16)
[2016-06-26] MEDS: AMOXIC-POT CLAV 875-125MG 1 EACH TAB PO SCH (21:16)
[2016-06-26] MEDS: GABAPENTIN 300 MG CAP PO SCH (21:17)
[2016-06-26] MEDS: BUDESONIDE 1 MG/2 ML NEBU INHALATION SCH (21:55)
[2016-06-26] MEDS: IPRATROPIUM-ALBUTEROL 3 ML NEB INHALATION SCH (22:00)
[2016-06-27] MEDS: HYDROcodone/APAP 5-325MG 1 EACH TAB PO PRN ×2 (03:37→11:52)
[2016-06-27] MEDS: CYCLOBENZAPRINE 10 MG TAB PO PRN ×3 (03:39→18:25)
[2016-06-27 06:51] VITALS: RESP 16
[2016-06-27] MEDS: PANTOPRAZOLE 40 MG TABLET PO SCH (08:26)
[2016-06-27] MEDS: AMOXIC-POT CLAV 875-125MG 1 EACH TAB PO SCH ×2 (08:26→21:08)
[2016-06-27] MEDS: GABAPENTIN 300 MG CAP PO SCH ×3 (08:29→21:08)
[2016-06-27] MEDS: BUDESONIDE 1 MG/2 ML NEBU INHALATION SCH ×2 (09:10→22:05)
[2016-06-27] MEDS: IPRATROPIUM-ALBUTEROL 3 ML NEB INHALATION SCH ×4 (09:10→22:05)
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
--- NOTE | 2016-06-27 14:52 | CONS ---
DATE OF CONSULTATION: REASON FOR CONSULTATION: Medical clearance. Patient is a 36-year-old, was discharged from my service after he was treated for suicidal ideation, drug overdose and aspiration pneumonia. Patient at this point of time denied any cough, denied any runny nose, abdominal pain, nausea, vomiting, but patient was complaining of neck pain from his cervical degenerative disc disease and asking me to increased the pain medications. The patient has also denied any STD-like symptoms, including penile discharge or dysuria but patient is requesting STD testing including HIV hepatitis panel, because of his 's promiscuity and I am going ahead and ordering those tests and I do not believe patient will need additional opiates for his pain. Patient is comfortable. REVIEW OF SYSTEMS: CONSTITUTIONAL: No fever, no malaise, no fatigue. HEENT: No recent visual problems or hearing problems. Denied any sore throat. CARDIOVASCULAR: No chest pain, orthopnea, PND, no palpitations, no syncope. PULMONARY: No shortness of breath, no cough, no hemoptysis. GASTROINTESTINAL: No diarrhea, no nausea, no vomiting, no abdominal pain. Normoactive bowel sounds. NEUROLOGICAL: No headaches, no weakness, no numbness. HEMATOLOGICAL: Denies any bleeding or petechiae. GENITOURINARY: Denies any burning micturition, frequency, or urgency. MUSCULOSKELETAL/RHEUMATOLOGICAL: As described in HPI. ENDOCRINE: Denies any polyuria or polydipsia. The rest of the 14 point review of systems is negative. PAST MEDICAL HISTORY: Asthma, herniated disc of the C-spine, seasonal anxiety, bipolar, multiple suicide attempts in the past, orthopedic surgery, right shoulder surgery. SOCIAL HISTORY: The patient does smoke 2-1/2 packs per day. Cut down to 3/4 pack per day now and history of binge drinking, but denied any recent alcoholism. History of her heroin and cocaine use. Patient I believe was positive for hepatitis C, anyways hepatitis panel will be ordered today. FAMILY HISTORY: Father had hypertension, bipolar disorder. Mother had no debilities. ALLERGIES: Allergic to MORPHINE and his medications were reviewed and actually reconciled yesterday. PHYSICAL EXAMINATION: Temperature 97.1, pulse of 80, respiratory rate of 16, blood pressure 143/88, saturating at 100% on room air. GENERAL: The patient is alert and oriented x3, not in any acute distress. Well developed, well nourished. HEENT: Pupils are round and equally reacting to light. EOMI. No scleral icterus. No conjunctival pallor. Normocephalic, atraumatic. No pharyngeal erythema. No thyromegaly. CARDIOVASCULAR: S1 and S2 present. No murmurs, rubs, or gallops. PULMONARY: Chest is clear to auscultation, no wheezing or crackles. ABDOMEN: Soft, nontender, nondistended, normoactive bowel sounds. No palpable organomegaly. MUSCULOSKELETAL: No joint swelling or deformity. EXTREMITIES: No cyanosis, clubbing, or pedal edema. NEUROLOGICAL: Gross neurological examination did not reveal any focal deficits. SKIN: No rashes. LABORATORY DATA: None available. ASSESSMENT AND PLAN: 1. IV drug use. Will rule out hepatitis C, hepatitis panel was ordered. 2. Evaluation for STDs as mentioned above. 3. Severe depression and suicide attempt, management as per Primary Service. 4. Possible aspiration pneumonia for which patient is on Augmentin which can be discontinued within 7 days. 5. History of asthma, not in acute exacerbation. 6. Cervical degenerative disc disease. No additional opiates are being added at this time. Will sign off at this point of time. Call us back if needed.
[2016-06-27 15:49] LABS: Hepatitis B Surface Ag Index 0.07
[2016-06-27 15:55] LABS: Hepatitis B Core IgM Index 0.03
[2016-06-27] MEDS: HYDROcodone/APAP 10-325MG 1 EACH TAB PO PRN ×2 (16:08→23:43)
[2016-06-27] MEDS ORDERED: MIRTAZAPINE 15 MG TAB PO SCH (21:00)
[2016-06-27 22:13] LABS: Hepatitis C Virus IgG Index 0.06
[2016-06-28 06:36] VITALS: BP 141/92; TEMP 98.4
[2016-06-28] MEDS: PANTOPRAZOLE 40 MG TABLET PO SCH (09:04)
[2016-06-28] MEDS: CYCLOBENZAPRINE 10 MG TAB PO PRN (09:04)
[2016-06-28] MEDS: HYDROcodone/APAP 10-325MG 1 EACH TAB PO PRN (09:04)
[2016-06-28] MEDS: GABAPENTIN 300 MG CAP PO SCH (09:04)
[2016-06-28] MEDS: AMOXIC-POT CLAV 875-125MG 1 EACH TAB PO SCH (09:04)
[2016-06-28] MEDS: BUDESONIDE 1 MG/2 ML NEBU INHALATION SCH (09:12)
[2016-06-28] MEDS: IPRATROPIUM-ALBUTEROL 3 ML NEB INHALATION SCH (09:12)
[2016-06-28 09:15] VITALS: PULSE 76
--- NOTE | 2016-06-28 14:37 | P.DS ---
Providers Date of admission: 06/26/16 16:54 Attending physician: Santi Jenkins MD Consults: 06/26/16 17:54 Consult Physician Routine Consulting Provider: Kendy Flores Consult Reason/Comments: history and physical Do you want consulting provider notified?: Yes Primary care physician: Santi Jenkins MD - Discharge Diagnosis(es) (1) Suicide attempt by multiple drug overdose Status: Acute Priority: High (2) Opioid dependence Status: Chronic Priority: Medium (3) Antisocial personality disorder Status: Chronic Priority: High Hospital Course: Mr. Shine is a 36-year-old male admitted to the ICU on 12/2016 following an intentional overdose prescription medications. I initially evaluated him on 06/21/2016. He was unresponsive and intubated. He was extubated on 06/24/2016 and on 06/25/16 we talked about the circumstances leading to his overdose and admission to the hospital. He stated that he was distressed over his separation from his . He stopped using heroin 2 weeks ago. She refused to stop using heroin. When he gave her an ultimatum "either stop using heroin or leave." She left. He described an ambivalent relationship with his . He wants her out of his life as long as she continues using heroin because he knows that if they are together and she continued using he were relapse. They were living with his mother. She left his mother's home and he is unaware of her whereabouts. A friend told him that she is exchanging sex for drugs to support her heroin use. On the other hand, he talked about missing his , loving his and not wanting to "be alone." She took overdose of his prescription medications with the intent to . He stated that he hoped that he would not wake up. However, after he took the overdose he called a "chief informatics officer" friend and asked the friend to tell his "eugene". The friend came to his house, alert and his mother and called emergency services. I also spoke with his parents who stated that he from his 2 days ago. Since his separation his has called him several times requesting money in order to buy heroin. They believe that he overdosed because of separation and his persistently calling him for money or drugs. During our interview today he denied feeling depressed or having thoughts of or suicide. He has no regret or remorse over the suicide attempt. His only complaint was pain in his hands and arms from the multiple fractures he incurred when he jumped off a balcony in residential in 2014. He talked about feeling hopeful because he was able to reschedule an employment interview and a new girlfriend visited him while he was on the ICU, medicine unit and here on the psychiatric unit. He plans to file a divorce from his . He has had 8 prior admissions to [facility]; the last was in September 2014. According to the admission history he had jumped from a second floor balcony of the residential resulting in fracture to both of his wrists. He was taken to [facility] where he had surgery and then referred for inpatient psychiatric treatment because the medical staff considered the act of being a suicide attempt. He stated that he has had multiple suicide attempts and multiple overdoses on prescription medications. We spoke to his parents they stated that he has overdosed on medications "multiple times". He alleged his first suicide attempt occurred when he was 8 years old. He ran into traffic hoping to be hit by a car and killed. He is distressed that he was in foster care. He has a history of use of cocaine, crack cocaine, methamphetamine and marijuana. He alleged that he started using heroin 2 years ago. He was injecting heroin until 2 weeks ago when he self detoxed. He stopped using heroin because he was "tired" of using. He alleged that he supported his use with the proceeds from distribution. He denied that he has been involved in a substance abuse treatment program. He was discharged from probation in May 2015 for charges of receiving stolen property. He has past felony charges of weapons possession, and receiving stolen property. According to the [place] [employer] he has multiple felonies including to 4 receiving stolen property over $100, weapons-ammunition possession by felon and controlled substance delivery/ manufacturing. He was imprisoned for 12 months and return to his mother's home but he was released in January 2016. He denied that he is on probation, parole or has pending charges. We admitted him to the psychiatric unit voluntarily and provided a biopsychosocial assessment. The advanced manufacturing consultant completed the physical exam and medical history and diagnosis IV drug abuse, rule out hepatitis C, history of unprotected sex, possible aspiration pneumonia, history of asthma and cervical degenerative disc disease. The advanced manufacturing consultant ordered a hepatitis panel and hepatitis a IgM antibody, hepatitis B surface antigen, hepatitis B core IgM antibody and hepatitis C IgG antibody were negative. The advanced manufacturing consultant also recommended to continue Augmentin for an additional 4 days, continue Narco 10 one by mouth every 6 hours when necessary for pain, don't have inhalation 4 times a day when necessary for shortness of breath, Pulmicort inhalation twice a day, gabapentin 300 mg 3 times a day Flexeril 10 mg 3 times a day when necessary for pain. Mr. Shine requested to restart mirtazapine 50 mg at bedtime for sleep and mood. He requested discharge as soon as he arrived on the psychiatric unit. He denied suicidal ideation, intent or plan. He expressed no remorse or concern over hissuicide attempt. He feels happy and hopeful because he found a new girlfriend on a dating website. He alleged that she has visited him while he was in the ICU and came to the psychiatric unit. 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 Patient Condition at Discharge: Stable Plan - Discharge Summary New Discharge Prescriptions: Amoxic-Pot Clav 875-125Mg [Augmentin 875-125] 1 each PO Q12HR #8 tab Gabapentin [Neurontin] 300 mg PO TID #90 cap Mirtazapine [Remeron] 15 mg PO HS #30 tab Discharge Medication List HYDROcodone/APAP 10-325MG [Lavallette 10-325] 1 tab PO Q6H PRN 05/20/16 [History] Amoxic-Pot Clav 875-125Mg [Augmentin 875-125] 1 each PO Q12HR #8 tab 06/28/16 [ Rx] Budesonide [Pulmicort] 1 mg INHALATION RT-BID neb 06/28/16 [Rx] Cyclobenzaprine [Flexeril] 10 mg PO TID PRN tab 06/28/16 [Rx] Gabapentin [Neurontin] 300 mg PO TID #90 cap 06/28/16 [Rx] HYDROcodone/APAP 10-325MG [Lavallette 10-325] 1 each PO Q6H PRN tab 06/28/16 [Rx] Ipratropium-Albuterol Nebulize [Duoneb 0.5 mg-3 mg/3 ml Soln] 3 ml INHALATION RT -QID neb 06/28/16 [Rx] Mirtazapine [Remeron] 15 mg PO HS #30 tab 06/28/16 [Rx] Pantoprazole [Protonix] 40 mg PO AC-BRKFST tab 06/28/16 [Rx] Follow up Appointment(s)/Referral(s): [facility] [Outside] - 07/03/16 11:30 am (w/ Gwendolyn Butler) Activity/Diet/Wound Care/Special Instructions: No alcohol or street drugs. Take medications as prescribed. Notify the crisis line or your care provider if symptoms worsen. Crisis line no. . Regular diet. Activity as tolerated. Discharge Disposition: HOME SELF-CARE
[2016-06-28 15:05] LABS: Hepatitis C Virus IgG Ab Negative (Negative)
[2016-06-29 07:27] LABS: HIV-1/HIV-2 Ab Screen NONREAC (NON REAC)
== END 2016-06-28 12:03 | disposition home or self-care (01) | DRG 881 ==
LOC: 3MHU 16:54
PROVIDERS: ADMIT Psychiatry & Neurology Psychiatry; ATTEND Psychiatry & Neurology Psychiatry
DX: F32.9 Major depressive disorder, single episode, unspecified (principal); F11.20 Opioid dependence, uncomplicated; T50.902A Poisoning by unspecified drugs, medicaments and biological substances, intentional self-harm, initial encounter; F60.2 Antisocial personality disorder; M50.30 Other cervical disc degeneration, unspecified cervical region; J45.909 Unspecified asthma, uncomplicated; F14.90 Cocaine use, unspecified, uncomplicated; F19.10 Other psychoactive substance abuse, uncomplicated; F17.200 Nicotine dependence, unspecified, uncomplicated; Z91.5 Personal history of self-harm; Z63.5 Disruption of family by separation and divorce; Z79.51 Long term (current) use of inhaled steroids; Z79.899 Other long term (current) drug therapy; Z86.14 Personal history of Methicillin resistant Staphylococcus aureus infection
CPT/HCPCS: 80074; 87389; 94640

== ENCOUNTER → 2017-07-29 | Outpatient (CLI) | payer OTHER ==
--- NOTE | 2017-07-29 22:59 | CT ---
EXAMINATION TYPE: CT wrist RT wo con DATE OF EXAM: 07/29/2017 COMPARISON: NONE HISTORY: 37-year-old male with right wrist pain with history of multiple injuries and surgeries. TECHNIQUE: Contiguous axial scanning of the right wrist without IV contrast. Coronal and sagittal rec onstructions performed. 3-D reconstructions generated on a dedicated independent workstation. CT DLP: 269 mGycm Automated exposure control for dose reduction was used. FINDINGS: There is resection of the distal ulna with adduction at the wrist and a dorsal plate and screw fixati on extending from the distal radial metadiaphysis bridging the radiocarpal joint, the dorsal carpus, and up to the level of the distal third aspect of the third metacarpal. Prominent lucency about the d istal aspect of the plate measuring up to 3.3 mm, sagittal image 13 suggestive of loosening and scatt ered areas of periscrew lucency at multiple levels. The fifth and sixth screws (the first two screws within the third metacarpal) are fractured. Bony remodeling extends partially around nearly the entire dorsal plate. There is a small screw an associated bony ankylosis along the radial styloid process with the distal scaphoid pole and capitate. Additional bony fusion of the capitate with the deformed lunate. Refer to coronal image 9 and 8 for billing representative images where bony bridging has occurred. However, a large g ap due to absence of fusion exists along the remainder of the radiocarpal joint. Of note, there is volar dislocation of the deformed lunate relative to the distal radius, refer to sa gittal image 14 and the 4th screw tip just enters the dorsal aspect of the capitate. There is also advanced degenerative change at the triscaphe joint as well as the second and third CMC joints. IMPRESSION: 1. EXTENSIVE POSTTRAUMATIC AND POSTSURGICAL DEFORMITY OF THE WRIST. THERE IS RESECTION OF THE DISTAL ULNA AND DORSAL PLATE AND SCREW FIXATION EXTENDING ACROSS THE DISTAL RADIUS TO THE LEVEL OF THE DISTA L THIRD ASPECT OF THE THIRD METACARPAL. 2. THE WRIST IS FUSED IN ADDUCTION AND THERE IS PROMINENT PERIPROSTHETIC LUCENCY, FRACTURING OF A COU PLE SCREWS, AND PROMINENT BONY REMODELING EXTENDING AROUND NEARLY THE ENTIRE DORSAL PLATE SUGGESTING CONTINUED MOVEMENT AND LOOSENING. 3. A SMALL RADIAL SIDED SCREW WITH BONE ANKYLOSIS ACROSS THE RADIAL STYLOID PROCESS, DISTAL POLE OF T HE SCAPHOID, AND CAPITATE. THE CAPITATE IS ALSO FUSED WITH A DEFORMED REMNANT OF THE LUNATE. HOWEVER, A LARGE BONE GAP REMAINS ALONG THE MAJORITY OF THE RADIOCARPAL JOINT AND THERE IS VOLAR DISLOCATION OF THE CAPITATE/LUNATE BONE MASS RELATIVE TO THE DISTAL RADIUS. 4. ADVANCED DEGENERATIVE CHANGES AT THE TRISCAPHE JOINT WELL THE SECOND AND THIRD CMC JOINTS.
== END | disposition home or self-care (01) ==
LOC: RADCTMAIN 18:25
PROVIDERS: ATTEND Orthopaedic Surgery
DX: M21.931 Unspecified acquired deformity of right forearm (principal); R93.7 Abnormal findings on diagnostic imaging of other parts of musculoskeletal system; Z98.890 Other specified postprocedural states

== ENCOUNTER 2018-06-02 17:24 | Emergency (ER) | payer OTHER ==
[2018-06-02 17:33] VITALS: RESP 18; TEMP 98.1
[2018-06-02] MEDS ORDERED: ceFAZolin IN SWFI 2 GM/20 ML SYRINGE IVP STA (17:46)
--- NOTE | 2018-06-02 18:45 | ED ---
Skin/Abscess/FB HPI - General Chief complaint: Skin/Abscess/Foreign Body Stated complaint: ABSCESSES ON BOTH LEGS Time Seen by Provider: 06/02/18 17:36 Source: patient, RN notes reviewed, old records reviewed Mode of arrival: ambulatory Limitations: no limitations - History of Present Illness Initial comments: is a 38-year-old male who presents emergency department today complaints of wounds over bilateral lower extremities after injecting methamphetamine 3 days ago. Patient states that his right leg has superficial wounds. He is concerned that he had a Depo injection in his left calf. Patient reports that he has significant tenderness and with any range of motion of the left calf. He feels like there is a deeper abscess. The Patient denies any fevers or chills. Patient states he has been sober for a few years. - Related Data Home Medications Medication Instructions Recorded Confirmed Meloxicam 15 mg PO DAILY 06/02/18 06/02/18 Omeprazole 20 mg PO BID 06/02/18 06/02/18 oxyCODONE HCL [Roxicodone] 30 mg PO QID 06/02/18 06/02/18 Previous Rx's Medication Instructions Recorded Cephalexin [Keflex] 500 mg PO Q6HR #40 cap 06/02/18 Sulfamethox-Tmp 800-160Mg [Bactrim 2 tab PO Q12HR #40 tab 06/02/18 DS 800-160 mg] Allergies Allergy/AdvReac Type Severity Reaction Status Date / Time morphine Allergy Itching Verified 06/02/18 18:55 quetiapine [From Seroquel] Allergy Itching Verified 06/02/18 18:55 trazodone Allergy Itching Verified 06/02/18 18:55 Review of Systems ROS Statement: Those systems with pertinent positive or pertinent negative responses have been documented in the HPI. ROS Other: All systems not noted in ROS Statement are negative. Past Medical History Past Medical History: Asthma Additional Past Medical History / Comment(s): Herniated disc in the C-spine and lumbar spine, seasonal ALLERGIES History of Any Multi-Drug Resistant Organisms: MRSA Date of last positivie culture/infection: 2008 MDRO Source:: Per Pt; bilat hips from boils 2008 Past Surgical History: Orthopedic Surgery Additional Past Surgical History / Comment(s): R shoulder surg 2005 due to a work-related injury, bilat wrist surg 09/13/[address] Toribio. Past Anesthesia/Blood Transfusion Reactions: No Reported Reaction Past Psychological History: ADD/ADHD, Anxiety, Bipolar, Depression, Schizoaffective Disorder Smoking Status: Current every day smoker Past Alcohol Use History: None Reported Past Drug Use History: Cocaine, Heroin, IV Drug Use, Methamphetamine, Prescription Drug Abuse - Past Family History Father Family Medical History: No Reported History Additional Family Medical History / Comment(s): Father is alove at age 65 with history of HTN, bilpolar. Mother Family Medical History: No Reported History, Diabetes Mellitus, Hypertension Additional Family Medical History / Comment(s): There is 52 years old with history of hypertension and diabetes. Patient has 2 sisters with bipolar. No brothers. General Exam - General Exam Comments Initial Comments: 30-year-old male. Alert and oriented. No significant distress. Limitations: no limitations General appearance: alert, in no apparent distress Head exam: Present: atraumatic, normocephalic, normal inspection Eye exam: Present: normal appearance, PERRL, EOMI. Absent: scleral icterus, conjunctival injection, periorbital swelling ENT exam: Present: normal exam, mucous membranes moist Neck exam: Present: normal inspection. Absent: tenderness, meningismus, lymphadenopathy Respiratory exam: Present: normal lung sounds bilaterally. Absent: respiratory distress, wheezes, rales, rhonchi, stridor Cardiovascular Exam: Present: regular rate, normal rhythm, normal heart sounds. Absent: systolic murmur, diastolic murmur, rubs, gallop, clicks GI/Abdominal exam: Present: soft, normal bowel sounds. Absent: distended, tenderness, guarding, rebound, rigid Extremities exam: Present: normal inspection, full ROM, normal capillary refill. Absent: tenderness, pedal edema, joint swelling, calf tenderness Back exam: Present: normal inspection Neurological exam: Present: alert, oriented X3, CN II-XII intact Psychiatric exam: Present: normal affect, normal mood Course Vital Signs 06/02/18 06/02/18 17:30 19:45 Temperature 98.1 F 98.1 F Pulse Rate 88 84 Respiratory 18 18 Rate Blood Pressure 138/90 108/78 O2 Sat by Pulse 99 99 Oximetry Medical Decision Making - Lab Data Result diagrams: 06/02/18 18:47 06/02/18 18:47 Lab Results 06/02/18 06/02/18 Range/Units 18:47 18:47 WBC 9.2 (3.8-10.6) k/uL RBC 4.63 (4.30-5.90) m/uL Hgb 13.1 (13.0-17.5) gm/dL Hct 40.1 (39.0-53.0) % MCV 86.5 (80.0-100.0) fL MCH 28.2 (25.0-35.0) pg MCHC 32.6 (31.0-37.0) g/dL RDW 15.2 (11.5-15.5) % Plt Count 333 (150-450) k/uL Neutrophils % 59 % Lymphocytes % 30 % Monocytes % 6 % Eosinophils % 3 % Basophils % 1 % Neutrophils # 5.4 (1.3-7.7) k/uL Lymphocytes # 2.7 (1.0-4.8) k/uL Monocytes # 0.5 (0-1.0) k/uL Eosinophils # 0.3 (0-0.7) k/uL Basophils # 0.1 (0-0.2) k/uL Sodium 139 (137-145) mmol/L Potassium 4.2 (3.5-5.1) mmol/L Chloride 103 (98-107) mmol/L Carbon Dioxide 26 (22-30) mmol/L Anion Gap 10 mmol/L BUN 20 (9-20) mg/dL Creatinine 0.80 (0.66-1.25) mg/dL Est GFR (CKD-EPI)AfAm >90 (>60 ml/min/1.73 sqM) Est GFR (CKD-EPI)NonAf >90 (>60 ml/min/1.73 sqM) Glucose 108 H (74-99) mg/dL Calcium 9.4 (8.4-10.2) mg/dL Disposition Clinical Impression: Methamphetamine abuse, Leg abscess Disposition: HOME SELF-CARE Condition: Good Instructions (If sedation given, give patient instructions): Abscess (ED) Additional Instructions: Follow-up with primary care doctor. Return to the emergency department if any alarming signs or symptoms occur. Take the medications as prescribed. Prescriptions: Sulfamethox-Tmp 800-160Mg [Bactrim DS 800-160 mg] 2 tab PO Q12HR #40 tab Cephalexin [Keflex] 500 mg PO Q6HR #40 cap Is patient prescribed a controlled substance at d/c from ED?: No Referrals: [facility] [Primary Care Provider] - 1-2 days Time of Disposition: 20:28
[2018-06-02 19:04] LABS: Basophils # (A) 0.1 k/uL (0-0.2); Basophils % (A) 1 %; Eosinophils # (A) 0.3 k/uL (0-0.7); Eosinophils % (A) 3 %; HCT 40.1 % (39.0-53.0); HGB 13.1 gm/dL (13.0-17.5); Lymphocytes # (A) 2.7 k/uL (1.0-4.8); Lymphocytes % (A) 30 %; MCH 28.2 pg (25.0-35.0); MCHC 32.6 g/dL (31.0-37.0); MCV 86.5 fL (80.0-100.0); Mean Platelet Volume 7.2; Monocytes # (A) 0.5 k/uL (0-1.0); Monocytes % (A) 6 %; Neutrophils # (A) 5.4 k/uL (1.3-7.7); Neutrophils % (A) 59 %; Platelet Count 333 k/uL (150-450); RBC 4.63 m/uL (4.30-5.90); RDW 15.2 % (11.5-15.5); WBC 9.2 k/uL (3.8-10.6)
[2018-06-02 19:09] LABS: Anion Gap 10 mmol/L; Blood Urea Nitrogen 20 mg/dL (9-20); Calcium 9.4 mg/dL (8.4-10.2); Carbon Dioxide 26 mmol/L (22-30); Chloride 103 mmol/L (98-107); Glucose 108 mg/dL (74-99); Potassium 4.2 mmol/L (3.5-5.1); Sodium 139 mmol/L (137-145)
--- NOTE | 2018-06-02 19:11 | US ---
EXAMINATION TYPE: US venous doppler duplex LE LT DATE OF EXAM: 06/02/2018 6:30 PM COMPARISON: NONE CLINICAL HISTORY: Pain. Patient IV drug user with pain in left calf. SIDE PERFORMED: Left TECHNIQUE: The lower extremity deep venous system is examined utilizing real time linear array sonog praveen with graded compression, doppler sonography and color-flow sonography. VESSELS IMAGED: External Iliac Vein (EIV) Common Femoral Vein Deep Femoral Vein Greater Saphenous Vein * Femoral Vein Popliteal Vein Small Saphenous Vein * Proximal Calf Veins (* superficial vessels) Findings: Grayscale, color doppler, spectral doppler imaging performed of the deep veins of the lower extremities. There is normal flow, compressibility, vascular waveforms. IMPRESSION: NEGATIVE FOR DVT, LEFT LOWER EXTREMITY.
[2018-06-02 19:46] VITALS: BP 108/78; PULSE 84
--- NOTE | 2018-06-02 20:05 | US ---
EXAMINATION TYPE: US extremity nonvasc mass LT DATE OF EXAM: 06/02/2018 COMPARISON: NONE CLINICAL HISTORY: Pain. Patient intervenous drug user. He injected his right calf and is having pain at the sight. DESCRIPTION: Real-time high-resolution sonographic technique was obtained over the area of interest, with both gra yscale and color Doppler. No focal fluid collection or mass or mass effect. No sonographic findings to correspond with the physical symptoms/signs. Note: Spoke with Khushboo, and she spoke with Carlita. Carlita confirmed that she imaged the LEFT lower e xtremity. IMPRESSION: NEGATIVE EXAMINATION.
[2018-06-02] MEDS ORDERED: SULFAMETH-TMP DS STARTER PACK 2 TAB BTL PO STA (20:28)
== END 2018-06-02 20:47 | disposition home or self-care (01) ==
LOC: EC 17:24
DX: L02.416 Cutaneous abscess of left lower limb (principal); L02.415 Cutaneous abscess of right lower limb; F15.10 Other stimulant abuse, uncomplicated; F17.200 Nicotine dependence, unspecified, uncomplicated; Z88.5 Allergy status to narcotic agent; Z88.8 Allergy status to other drugs, medicaments and biological substances; Z79.1 Long term (current) use of non-steroidal anti-inflammatories (NSAID); Z79.891 Long term (current) use of opiate analgesic; Z79.899 Other long term (current) drug therapy; Z86.14 Personal history of Methicillin resistant Staphylococcus aureus infection; Z87.39 Personal history of other diseases of the musculoskeletal system and connective tissue
CPT/HCPCS: 36415; 80048; 85025; 87040; 93971; 76882; 99284; 96374; J0690